=== PATIENT | male | born 1950 | race Caucasian/White ===

== ENCOUNTER 2019-01-29 09:25 | Emergency (ER) | payer MEDICARE, SELFPAY ==
[2019-01-29 09:25] VITALS: BP 144/80; PULSE 77; RESP 13; TEMP 36.1; O2SAT 100
--- NOTE | 2019-01-29 09:35 | ED.NEUROSD ---
HPI - Neuro Symptoms/Deficit General Chief Complaint: Neuro Symptoms/Deficit Stated Complaint: STROKE SYMPTOMS Time Seen by Provider: 01/29/19 09:34 Source: patient Mode of arrival: ambulatory Limitations: no limitations History of Present Illness HPI Narrative: Patient is an 68 year old male who presents with a speech difficulty now resolved. states that he was sitting in a chair she noticed some facial drooping he was only talking out of 1 side of his mouth she did not understand what he was saying. He then stood up his at which point he fell against the wall no loss of consciousness. He said that his legs got extremely weak and numb bilaterally. He denies any chest pain or heart palpitations. No unilateral weakness. symptoms lasted for under 10 minutes. He now is back to normal. Onset (ago): minute(s) Timing confirmed by: spouse Location: speech History of same: No Related Data Home Medications Medication Instructions Recorded Confirmed Artificial Tears (PF) 1 - 2 drp EYE-RIGHT TID PRN 01/29/19 01/29/19 PNV cmb#[id number]-ferrous fumarate-FA 1 tab PO 1200 01/29/19 01/29/19 [] acetaminophen 650 mg PO Q4H PRN 01/29/19 01/29/19 atorvastatin 20 mg PO BEDTIME 01/29/19 01/29/19 bisacodyl 10 mg PO DAILY PRN 01/29/19 01/29/19 calcium carbonate 2,000 mg PO BID 01/29/19 01/29/19 cholecalciferol (vitamin D3) 800 unit PO 1200 01/29/19 01/29/19 [Vitamin D3] furosemide 80 mg PO BID 01/29/19 01/29/19 insulin glargine 6 units SUBCUT QAM 01/29/19 01/29/19 magnesium oxide 840 mg PO TID 01/29/19 01/29/19 melatonin 6 mg PO BEDTIME 01/29/19 01/29/19 metoprolol succinate 50 mg PO DAILY 01/29/19 01/29/19 mycophenolate mofetil 500 mg PO BID 01/29/19 01/29/19 pantoprazole 40 mg PO DAILY 01/29/19 01/29/19 pentamidine 1 dose INHALATION QMONTH 01/29/19 01/29/19 prednisone 10 mg PO DAILY 01/29/19 01/29/19 tacrolimus 1 mg PO Q12H 01/29/19 01/29/19 valganciclovir 450 mg PO DAILY 01/29/19 01/29/19 Allergies Allergy/AdvReac Type Severity Reaction Status Date / Time No Known Drug Allergies Allergy Verified 01/29/19 10:46 Review of Systems Review of Systems ROS Unobtainable: All systems reviewed & are unremarkable except as noted in HPI and below Constitutional Denies chills, Denies fever(s), Denies lethargy and Denies weakness Cardiovascular Denies chest pain, Denies irregular heart rhythm, Reports lightheadedness, Denies palpitations, Denies dyspnea, Denies dyspnea on exertion and Denies orthopnea Respiratory Denies cough, Denies dyspnea, Denies dyspnea on exertion and Denies wheezing Gastrointestinal Gastrointestinal: Denies abdominal pain, Denies change in bowel habits, Denies diarrhea, Denies nausea and Denies vomiting Genitourinary Denies hematuria, Denies flank pain, Denies urinary incontinence and Denies urinary urgency Musculoskeletal Denies back pain, Denies muscle weakness, Denies numbness and Reports tingling Integumentary/Breasts Denies pruritus, Denies erythema, Denies rash and Denies wounds Neurologic Reports as per HPI, Denies numbness, Denies seizure-like activity, Reports tingling and Denies weakness Endocrine Denies palpitations Allergic/Immunologic Denies wheezing [facility] Medical History (Updated 01/29/19 @ 12:55 by Sayda Orosco DO) Atrial fibrillation (Acute) Pulmonary fibrosis (Acute) Surgical History Lung transplant status, bilateral (Acute) Exam Initial Vital Signs Initial Vital Signs: Vital Signs Temperature 97 F L 01/29/19 09:25 Pulse Rate 77 01/29/19 09:25 Respiratory Rate 13 01/29/19 09:25 Blood Pressure 144/80 H 01/29/19 09:25 Pulse Oximetry 100 01/29/19 09:25 GENERAL: Alert well-appearing male no acute distress HEENT: Head atraumatic,EOMI, pupils reactive, face symmetric, no JVD CARDIOVASCULAR: Regular rate and rhythm without murmurs, rubs or gallops. RESPIRATORY: Breath sounds equal bilaterally, no wheezes rales or rhonchi. ABDOMEN: Soft, nontender. Normoactive bowel sounds all 4 quadrants. No guarding or rebound. EXTREMITIES: Normal range of motion, no clubbing or edema. Neurovascularly intact NEUROLOGICAL: Alert and oriented x4.Normal gait and speech. Cranial nerves II through XII grossly intact. [Good [id number], good [id number], strength equal bilaterally, no dysarthria or aphasia, sensation in tact to soft touch bilaterally, no visual changes, no facial droop] SKIN: Warm, dry, no laceration, no petechiae, no rashes or lesions. Scores ABCD2 Age >= 60 years: yes Initial BP. Either SBP >= 140 or DBP >= 90.: no Clinical features of the TIA: speech disturbance without weakness Duration of symptoms: < 10 minutes History of diabetes: yes ABCD2 Score: 3 NIH Stroke Scale Level of Conciousness: Alert, keenly responsive Ask month/age: Answers both questions correctly. Open/close eyes, close hand: Performs both tasks correctly Best gaze horizontal: Normal Visual fountain: No visual loss Facial palsy: Normal symetrical movement Left arm drift: No drift for full 10 sec Right arm drift: No drift for full 10 sec Left leg drift: No drift for full 10 sec Right leg drift: No drift for full 10 sec Limb ataxia: Absent Sensory on face/arms/legs: Normal, no sensory loss Best language: No aphasia, normal Dysarthria: Normal Extinction or inattention: No abnormality Total NIH Stroke scale score: 0 Course Orders Ordered: ED Orders 01/29/19 09:34 Urine Drug Screen, Rapid Stat EKG-12 Lead Stat 01/29/19 09:44 CT head/brain wo con Stat 01/29/19 10:00 Complete Blood Count AUTO DIFF Stat Comprehensive Metabolic Panel Stat Partial Thromboplastin Time Stat Prothrombin Time INR Stat Troponin & CK Cardiac Panel Stat 01/29/19 11:53 CT angio chest abdomen pelvis Stat Discontinued Medications Aspirin (Aspirin Chew) 324 mg PO NOW ONE Stop: 01/29/19 11:33 Last Admin: 01/29/19 12:35 Dose: 324 mg Vital Signs - 8 hr 01/29/19 09:25 01/29/19 11:00 01/29/19 11:12 Temperature 97 F L Pulse Rate 77 69 70 Respiratory Rate 13 15 Blood Pressure 144/80 H Blood Pressure [Left Arm] 120/71 120/71 Pulse Oximetry 100 97 97 01/29/19 13:05 Temperature Pulse Rate 73 Respiratory Rate 18 Blood Pressure Blood Pressure [Left Arm] 96/48 L Pulse Oximetry 97 MDM - Neuro Symptoms/Deficit Lab Data Attestation: I reviewed the patient's lab results. Result diagrams: 01/29/19 10:00 01/29/19 10:00 Lab Results 01/29/19 01/29/19 01/29/19 Range/Units 10:00 10:00 10:00 WBC 6.9 (4.5-11.0) X10^3/uL RBC 3.24 L (4.5-5.9) X10^6/uL Hgb 10.2 L (13.5-17.5) g/dL Hct 31.4 L (41-53) % MCV 97.1 (80-100) fL MCH 31.4 (26-34) PG MCHC 32.3 (30-36) % RDW 17.6 H (11.6-14.8) % Plt Count 192 (150-400) X10^3/uL Neut % (Auto) Not Reportable Lymph % (Auto) Not Reportable [place] % (Auto) Not Reportable Eos % (Auto) Not Reportable Baso % (Auto) Not Reportable Lymph # (Auto) Not Reportable [place] # (Auto) Not Reportable Baso # (Auto) Not Reportable Total Counted 100 Seg Neutrophils % 75.0 H (38-70) % Band Neutrophils % 11.0 H (3-7) % Lymphocytes % (Manual) 7.0 L (25-45) % Atypical Lymphs % 3.0 H ( - 0) % Monocytes % (Manual) 1.0 L (2-11) % Eosinophils % (Manual) 1.0 L (2-4) % Metamyelocytes % 2.0 H (-0) % Neutrophils # (Manual) 5934 H (8833-0737) /uL RBC Morphology Normal morphology PT 12.3 (10.1-12.7) SECONDS INR 1.1 (0.9-1.3) APTT 27 (26.4-36.2) SECONDS Sodium 139 (137-145) mmol/L Potassium 4.0 (3.4-5.1) mmol/L Chloride 96 L (98-107) mmol/L Carbon Dioxide 32 (22-32) mmol/L BUN 47 H (9-20) mg/dL Creatinine 1.40 H (0.66-1.25) mg/dL Estimated GFR 50.2 L (>60) mL/min BUN/Creatinine Ratio 33.6 H (6-22) Glucose 137 H (80-110) mg/dL Calcium 8.9 (8.4-10.2) mg/dL Total Bilirubin 0.4 (0.2-1.3) mg/dL AST 27 (17-59) IU/L ALT 40 (21-72) IU/L Alkaline Phosphatase 63 (38-126) U/L Total Creatine Kinase 25 L (55-170) U/L CK-MB (CK-2) TNP CK-MB (CK-2) Rel Index TNP Troponin I < 0.012 (0.01-0.034) ng/mL Total Protein 6.1 L (6.3-8.2) g/dL Albumin 3.6 (3.5-5.0) g/dL Globulin 2.5 (1.7-4.1) g/dL Albumin/Globulin Ratio 1.4 (1.0-2.8) Point of Care Testing Glucose POC 153 Urine Dip Bedside Urine Glucose Negative Bedside Urine Bilirubin - Negative Bedside Urine Ketone - Negative Urine Specific [place] 1.015 Bedside Urine Occult Blood - Negative Bedside Urine pH 7.0 Bedside Urine Protein - Negative Bedside Urine Urobilinogen - Negative Bedside Urine Nitrite - Negative Bedside Urine Leukocytes - Negative Esterase Imaging Data CT scan - head: Radiologist's impression: PROCEDURE: CT HEAD/BRAIN WO CON INDICATIONS: speech difficulty now resolved TECHNIQUE: Noncontrast 4.5 mm thick angled axial sections acquired from the foramen magnum to the vertex, with coronal and sagittal reformats. For radiation dose reduction, the following was used: automated exposure control, adjustment of mA and/or kV according to patient size. COMPARISON: None. FINDINGS: Image quality: Diagnostic. CSF spaces: Basal cisterns are patent. No extra-axial fluid collections. Ventricles are normal in size and shape. An arachnoid cyst within the posterior fossa is incidentally noted. Brain: No midline shift. No intracranial masses or hemorrhage. Harrison-white matter interface is normal. Skull and face: Calvarium and visualized facial bones are intact, without suspicious lesions. Sinuses: Visualized sinuses and mastoids are clear. IMPRESSION: Unremarkable head CT. No acute intracranial hemorrhage. Dictated by: Sameer Pleitez M.D. on 01/29/2019 at 8:59 CT scan - chest: Radiologist's impression: PROCEDURE: CT ANGIO CHEST ABDOMEN PELVIS INDICATIONS: known ascending aneurysm, chest pain TECHNIQUE: Precontrast 5 mm thick sections acquired from the lung apices to the iliac crests. After the administration of intravenous contrast, 2.5 mm thick sections again acquired from the lung apices to the iliac crests. Maximum intensity projection (MIP) oblique sagittal and coronal reformats were then acquired. For radiation dose reduction, the following was used: automated exposure control. COMPARISON: None. FINDINGS: Image quality: Excellent. AORTA: Intramural hematoma: Absent Maximum hematoma thickness: Not applicable. Focal contrast enhancement: Intramural blood pool (< 2 mm neck or imperceptible communication with aortic lumen): Absent. Ulcer-like projection (broad communication with aortic lumen > 3 mm): Absent. Dissection: Absent [place] classification: Not applicable Maximum aortic diameter: 4.3 cm at the ascending aorta. Periaortic hematoma: Absent. CHEST: Lungs and pleura: No acute airspace opacities. No pleural effusions or pneumothorax. Central and peripheral airways are patent and normal in caliber. Mediastinum: Heart size is normal. No pericardial effusion. No mediastinal or hilar adenopathy by size criteria. Central pulmonary arteries are normal in size. Esophagus is normal in caliber. No hiatal hernias. Bones and chest wall: No axillary adenopathy by size criteria. Thyroid gland is normal. No suspicious bony lesions. No vertebral body compression fractures. ABDOMEN: Vasculature: Celiac trunk and mesenteric arteries are patent. Renal arteries are also patent. Solid organs: Liver is normal in size and enhancement. There are several scattered small water density hepatic cysts. Gallbladder normal. Biliary system is non dilated. Pancreas enhances normally. Spleen is normal in size and enhancement. No adrenal nodules. Both kidneys are normal in size and enhancement, without hydronephrosis. Peritoneum and bowel: No free fluid or air. Bowel loops are normal in caliber and wall thickness. Nodes and vessels: No retroperitoneal or mesenteric adenopathy by size criteria. Inferior vena cava is normal in morphology. Miscellaneous: No ventral hernias. PELVIS: Genitourinary: Bladder wall thickness is normal. Miscellaneous: No inguinal hernias or adenopathy. No ventral hernias. Prostate radiation therapy seed implants. Bones: No suspicious bony lesions. No vertebral body compression fractures. IMPRESSION: No dissection found, 4.3 cm maximally dilated ascending aorta, no comparison to establish chronicity of this measurement. No definite source of chest pain is found. Dictated by: Santana Ruffin M.D. on 01/29/2019 at 12:32 ECG Data Attestation: I personally reviewed and interpreted this ECG as follows: Prior ECG tracings: not available for review Interpretation: Normal sinus rhythm rate 73 HI interval 148 QRS [address] changes Q-wave noted in lead 3 no priors to MDM Narrative Medical decision making narrative: I spoke at length the patient's own PCP Dr. Delvalle at the [facility]. He is quite familiar with the patient. He has been updated on patient's test results. He states patient had a very complete workup prior to his lung transplant. At this time he is requesting imaging of his ascending aneurysm. He is aware that patient actually does not any chest pain at all although he did have a slight near syncopal episode. At this time patient is agreeable to a CT angio. Dr. Delvalle then updated on the patient's angio results which seems stable. He agrees with outpatient follow-up with carotid Dopplers and starting patient on an aspirin. Patient and updated on patient's test results agree with daily full-dose aspirin and follow-up. Discharge Plan Departure Patient Disposition: Home Clinical Impression: Transient cerebral ischemia Qualifiers: Transient cerebral ischemia type: unspecified Qualified Code(s): G45.9 - Transient cerebral ischemic attack, unspecified Discharge Date/Time: 01/29/19 13:20 Interventions: ED Discharge Assessment Last Done: 01/29/19 13:19 Instructions: DI for Transient Ischemic Attack Activity Restrictions/Additional Instructions: *You have been diagnosed with TIA *What to do: Still recommend having carotid Dopplers of your neck performed by her PCP. *Continue to take medications as directed Aspirin 325mg daily *Follow up with your primary care provider in 2-3 days *Return to ER if you should have chest pain shortness of breath weakness has difficulty speaking facial droop visual changes or any new, worsening or concerning symptoms Prescriptions: No Action atorvastatin 20 mg Tablet 20 mg PO BEDTIME RF: 0 metoprolol succinate 100 mg Tablet Extended Release 24 Hr 50 mg PO DAILY RF: 0 prednisone 5 mg Tablet 10 mg PO DAILY RF: 0 mycophenolate mofetil 500 mg Tablet 500 mg PO BID RF: 0 furosemide 20 mg Tablet 80 mg PO BID RF: 0 tacrolimus 1 mg Capsule 1 mg PO Q12H RF: 0 Artificial Tears (PF) 1 - 2 drp EYE-RIGHT TID PRN (Reason: Dry Eyes) RF: 0 valganciclovir 450 mg Tablet 450 mg PO DAILY RF: 0 acetaminophen 325 mg Tablet 650 mg PO Q4H PRN (Reason: PAIN) RF: 0 magnesium oxide 420 mg Tablet 840 mg PO TID RF: 0 insulin glargine 100 unit/mL Solution 6 units subcut QAM RF: 0 pentamidine 300 mg Recon Soln 1 dose Inhalation QMONTH RF: 0 melatonin 3 mg Tablet 6 mg PO BEDTIME RF: 0 pantoprazole 40 mg Tablet,Delayed Release (Dr/Ec) 40 mg PO DAILY RF: 0 calcium carbonate 500 mg calcium (1,250 mg) Tablet,Chewable 2,000 mg PO BID RF: 0 cholecalciferol (vitamin D3) [Vitamin D3] 400 unit Tablet 800 unit PO 1200 RF: 0 bisacodyl 5 mg Tablet 10 mg PO DAILY PRN (Reason: Constipation) RF: 0 PNV cmb#95-ferrous fumarate-FA [] 28 mg iron- 800 mcg Tablet 1 tab PO 1200 RF: 0 Referrals: Carleen Harris ARNP [Primary Care Provider] -
--- NOTE | 2019-01-29 09:44 | DI.CT.S_ITS ---
PROCEDURE: CT HEAD/BRAIN WO CON INDICATIONS: speech difficulty now resolved TECHNIQUE: Noncontrast 4.5 mm thick angled axial sections acquired from the foramen magnum to the vertex, with coronal and sagittal reformats. For radiation dose reduction, the following was used: automated exposure control, adjustment of mA and/or kV according to patient size. COMPARISON: None. FINDINGS: Image quality: Diagnostic. CSF spaces: Basal cisterns are patent. No extra-axial fluid collections. Ventricles are normal in size and shape. An arachnoid cyst within the posterior fossa is incidentally noted. Brain: No midline shift. No intracranial masses or hemorrhage. Harrison-white matter interface is normal. Skull and face: Calvarium and visualized facial bones are intact, without suspicious lesions. Sinuses: Visualized sinuses and mastoids are clear. IMPRESSION: Unremarkable head CT. No acute intracranial hemorrhage. Dictated by: Sameer Pleitez M.D. on 01/29/2019 at 8:59 Approved by: Sameer Pleitez M.D. on 01/29/2019 at 9:30
--- NOTE | 2019-01-29 09:47 | PC.NURSE ---
dr. francisco did not want to call code stroke on pt
--- NOTE | 2019-01-29 10:12 | PC.NURSE ---
Hx of one episode of atrial flutter in August after his bilateral lung transplant in July. He was cardioverted and anticoagulation. He stopped his anticoagulation therapy in December. Denies symptoms prior to this episode of slurred speech and facial droop. BEFAST is negative at this time.
[2019-01-29 10:18] LABS: Add Manual Diff / Slide Review YES; Hematocrit 31.4 % (41-53); Hemoglobin 10.2 g/dL (13.5-17.5); Mean Corpuscular HGB Conc 32.3 % (30-36); Mean Corpuscular Hemoglobin 31.4 PG (26-34); Mean Corpuscular Volume 97.1 fL (80-100); Platelet Count 192 X10^3/uL (150-400); Red Blood Cell Count 3.24 X10^6/uL (4.5-5.9); Red Cell Distribution Width 17.6 % (11.6-14.8); White Blood Cell Count 6.9 X10^3/uL (4.5-11.0)
[2019-01-29 10:24] LABS: INR 1.1 (0.9-1.3); Prothrombin Time 12.3 SECONDS (10.1-12.7)
[2019-01-29 10:26] LABS: PTT Partial Thromboplastin Tim 27 SECONDS (26.4-36.2)
[2019-01-29 10:28] LABS: Alanine Aminotransferase 40 IU/L (21-72); Albumin 3.6 g/dL (3.5-5.0); Albumin Globulin Ratio 1.4 (1.0-2.8); Alkaline Phosphatase 63 U/L (38-126); Aspartate Aminotransferase 27 IU/L (17-59); BUN Creatinine Ratio 33.6 (6-22); Bilirubin Total 0.4 mg/dL (0.2-1.3); Blood Urea Nitrogen 47 mg/dL (9-20); Calcium 8.9 mg/dL (8.4-10.2); Carbon Dioxide 32 mmol/L (22-32); Chloride 96 mmol/L (98-107); Creatine Kinase 25 U/L (55-170); Estimated Glomerular Filt Rate 50.2 mL/min (>60); Globulin 2.5 g/dL (1.7-4.1); Glucose 137 mg/dL (80-110); HEMOLYSIS < 15 (0-50); Sodium 139 mmol/L (137-145); Total Protein 6.1 g/dL (6.3-8.2)
[2019-01-29 10:40] LABS: Troponin I < 0.012 ng/mL (0.01-0.034)
[2019-01-29 11:00] VITALS: BP 120/71; PULSE 69; RESP 15; O2SAT 97
[2019-01-29 11:12] VITALS: BP 120/71; PULSE 70; O2SAT 97
[2019-01-29 11:27] LABS: Neutrophils Absolute Manual 5934 /uL (3000-5900); Total Cells Counted 100
[2019-01-29 11:28] LABS: RBC Morphology Normal Morphology
--- NOTE | 2019-01-29 11:53 | DI.CT.S_ITS ---
PROCEDURE: CT ANGIO CHEST ABDOMEN PELVIS INDICATIONS: known ascending aneurysm, chest pain TECHNIQUE: Precontrast 5 mm thick sections acquired from the lung apices to the iliac crests. After the administration of intravenous contrast, 2.5 mm thick sections again acquired from the lung apices to the iliac crests. Maximum intensity projection (MIP) oblique sagittal and coronal reformats were then acquired. For radiation dose reduction, the following was used: automated exposure control. COMPARISON: None. FINDINGS: Image quality: Excellent. AORTA: Intramural hematoma: Absent Maximum hematoma thickness: Not applicable. Focal contrast enhancement: Intramural blood pool (< 2 mm neck or imperceptible communication with aortic lumen): Absent. Ulcer-like projection (broad communication with aortic lumen > 3 mm): Absent. Dissection: Absent [place] classification: Not applicable Maximum aortic diameter: 4.3 cm at the ascending aorta. Periaortic hematoma: Absent. CHEST: Lungs and pleura: No acute airspace opacities. No pleural effusions or pneumothorax. Central and peripheral airways are patent and normal in caliber. Mediastinum: Heart size is normal. No pericardial effusion. No mediastinal or hilar adenopathy by size criteria. Central pulmonary arteries are normal in size. Esophagus is normal in caliber. No hiatal hernias. Bones and chest wall: No axillary adenopathy by size criteria. Thyroid gland is normal. No suspicious bony lesions. No vertebral body compression fractures. ABDOMEN: Vasculature: Celiac trunk and mesenteric arteries are patent. Renal arteries are also patent. Solid organs: Liver is normal in size and enhancement. There are several scattered small water density hepatic cysts. Gallbladder normal. Biliary system is non dilated. Pancreas enhances normally. Spleen is normal in size and enhancement. No adrenal nodules. Both kidneys are normal in size and enhancement, without hydronephrosis. Peritoneum and bowel: No free fluid or air. Bowel loops are normal in caliber and wall thickness. Nodes and vessels: No retroperitoneal or mesenteric adenopathy by size criteria. Inferior vena cava is normal in morphology. Miscellaneous: No ventral hernias. PELVIS: Genitourinary: Bladder wall thickness is normal. Miscellaneous: No inguinal hernias or adenopathy. No ventral hernias. Prostate radiation therapy seed implants. Bones: No suspicious bony lesions. No vertebral body compression fractures. IMPRESSION: No dissection found, 4.3 cm maximally dilated ascending aorta, no comparison to establish chronicity of this measurement. No definite source of chest pain is found. Dictated by: Santana Ruffin M.D. on 01/29/2019 at 12:32 Approved by: Santana Ruffin M.D. on 01/29/2019 at 12:35
[2019-01-29] MEDS: ASPIRIN 81 MG TAB 324 MG PO (12:35)
[2019-01-29 13:05] VITALS: BP 96/48; PULSE 73; RESP 18; O2SAT 97
== END 2019-01-29 13:20 | disposition home or self-care (01) ==
PROVIDERS: Emergency Provider Emergency Medicine; PCP Nurse Practitioner
DX: G45.9 Transient cerebral ischemic attack, unspecified (principal); R53.1 Weakness; R20.0 Anesthesia of skin; R47.89 Other speech disturbances; R55 Syncope and collapse; Z94.2 Lung transplant status
CPT/HCPCS: 36415; 36591; 70450; 71275; 74174; 80053; 81003; 82550; 82962; 84484; 85025; 85610; 85730; 93005; 99284; 99285; 99291; Q9967

== ENCOUNTER 2019-11-26 08:15 | Outpatient (RCR) | payer OTHER, SELFPAY ==
--- NOTE | 2019-09-26 19:45 | PT.OIE ---
Current Diagnoses Low back pain (09/26/19) Abnormal posture (09/26/19) Weakness (09/26/19) Past Medical History (Last Updated 01/29/19 @ 11:45 by Sayda Orosco DO) Atrial fibrillation (Acute) Pulmonary fibrosis (Acute) Past Surgical History (Last Reviewed 01/29/19 @ 09:40 by Sayda Orosco DO) Lung transplant status, bilateral (Acute) Visit Care Team Role Provider Type JEB Armenta Attending Provider Non-Staff Primary Care Provider Specialty: Medical Address: [address] [place] [address], [id number] Email: Physical Therapy Initial Evaluation PT-OP-A Visit Information Start: 09/26/19 08:13 Freq: Status: Active Protocol: Document 09/26/19 15:13 [facility] (Rec: 09/26/19 16:00 [facility] [id number]) Out-Patient Physical Therapy Visit Information Visit Information Visit Type Initial Evaluation Visit Start Time 15:18 Visit Stop Time 16:00 Total Visit Minutes 42 Visit Number 1 Number of INJECTION MOLDING MACHINE SETTER Visits 0 PT-OP-B Current Condition Start: 09/26/19 08:13 Freq: Status: Active Protocol: Document 09/26/19 15:13 [facility] (Rec: 09/26/19 16:00 [facility] [id number]) Current Condition History of Current Condition Onset Date 1 month ago Current Complaints LBP History of Current Condition Pt reports about 1 month ago he was crouched into a small space for about 10 min and he had excruciating pain after. Pt reports he feels likes he gets about 2-3% better per day and is about 40% better now compared to 1 month ago. Pt reports he took tylenol 4 times aday at first but now is only taking it once. Pt reprots it is difficult getting socks and pants on. Pt reprots history of B lung transplant last Jul 2018. He reports history of prostate cancer where he had a seed implant and is now cleared. 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 Pt has history of LBP in past from injury 20 years ago. Pt repots he now puts a pillow between his knees to help with sleeping. Pt walks dog 1-2 miles/day. Pt reports after the lung surgery he has had numbness in ant L leg and B ankles. Pt reports overall has recovered from lung surgery but is still a little weaker. Lung transplant was d/t pulmonary fibrosis. Pt reports always a little bit of pain in chest since surgery. Prior Treatments and Tests Xray of his back showed history of T11 compression fracture; acupuncture 2x- helpful Treatment Goals Patient/Caregiver Goals eliminate the pain, be more flexible, easier time at work, get dressed easier PT-OP-C Subjective Start: 09/26/19 08:13 Freq: Status: Active Protocol: Document 09/26/19 15:13 [facility] (Rec: 09/26/19 16:00 [facility] [id number]) Patient Questionnaires Oswestry Low Back Index Oswestry Score 19/50 Oswestry Impairment 20 to 39% Impaired (Score 20- 39) OP-PT Pain Assessment Location LBP Intensity 3 Scale Used Numeric (1 - 10) Description Aching,With Movement Description- Other worst: 5/10; initially felt like someone hit in spine w/ hammer Frequency Daily Pain Duration constant 3/10 w/only momentary inc to 5 Pain Aggravating Factors ADL's,Standing,Sitting,Bending ,Lifting Other Pain Aggravating Factors working Pain Alleviating Factors Heat,Medication Other Pain Alleviating Factors stretching, walk PT-OP-F Manual Assessment Start: 09/26/19 08:13 Freq: Status: Active Protocol: Document 09/26/19 15:13 [facility] (Rec: 09/26/19 16:00 [facility] [id number]) Manual Assessments Soft Tissue Assessment Soft Tissue Mobility Assessment tight QL B PT-OP-J Posture/Palpation/Skin Start: 09/26/19 08:13 Freq: Status: Active Protocol: Document 09/26/19 15:13 [facility] (Rec: 09/26/19 16:00 [facility] [id number]) Posture Evaluation Paulo Postural Classification System Paulo Postural Classifications Posterior/Anterior Elbow Flexion Test 1 Lumbar Protective Mechanism Left AP 1 Lumbar Protective Mechanism Right AP 1 Lumbar Protective Mechanism Left PA 1 Lumbar Protective Mechanism Right PA 2 PT-OP-K Range of Motion Start: 09/26/19 08:13 Freq: Status: Active Protocol: Document 09/26/19 15:13 [facility] (Rec: 09/26/19 16:00 [facility] [id number]) Lumbar Spine Range of Motion Lumbar Spine Active Degrees Rotation Left 53 Rotation Right 47 ROM Limitations Pain Comments SB R:9 cm SB L: 11 cm flex: 5cm pain ext:4.5 cm PT-OP-L Special Tests Start: 09/26/19 08:13 Freq: Status: Active Protocol: Document 09/26/19 15:13 [facility] (Rec: 09/26/19 16:00 [facility] [id number]) Special Tests Lumbar Spine Special Tests Slump Test Results positive B Compression Test Results relief CADY Test Results Neg R; mild L hip pain Rocky Test Results modified rocky (hip flexor only tested)-mild tightness B Straight Leg Raise Test Results R 68-HS tightness; L 82 HS tightenss and ant L thigh pain PT-OP-M Strength Start: 09/26/19 08:13 Freq: Status: Active Protocol: Document 09/26/19 15:13 [facility] (Rec: 09/26/19 16:00 [facility] [id number]) Hip Strength Hip Manual Muscle Testing Left Flexion (L2) 3 Fair Abduction 3 Fair Adduction 3+ Fair+ External Rotation 3 Fair Internal Rotation 3 Fair Right Flexion (L2) 3+ Fair+ Abduction 3+ Fair+ Adduction 3 Fair External Rotation 3+ Fair+ Internal Rotation 3+ Fair+ Comments significant dec core stability with hip motions Knee Strength Knee Manual Muscle Testing Left Flexion (S2) 4- Good- Extension (L3) 3+ Fair+ Right Flexion (S2) 4+ Good+ Extension (L3) 3+ Fair+ Ankle/Foot Strength Ankle and Foot Manual Muscle Testing Left Dorsiflexion (L4) 3+ Fair+ Plantarflexion (S1) 3+ Fair+ Right Dorsiflexion (L4) 3 Fair Plantarflexion (S1) 3 Fair Comments PF tested seated B PT-OP-Q Treatments Start: 09/26/19 08:13 Freq: Status: Active Protocol: Document 09/26/19 15:13 [facility] (Rec: 09/26/19 16:00 [facility] [id number]) Therapeutic Exercises Supine Exercises bridge Reps/Minutes 8 rotation Supine Exercise Name LTR Side bilateral Reps/Minutes 6 hip flex Supine Exercise Name Tabd contraction w/marching Side bilateral Reps/Minutes 15 PT-OP-T Assessment and Plan Start: 09/26/19 08:13 Freq: Status: Active Protocol: Document 09/26/19 15:13 [facility] (Rec: 09/26/19 16:00 [facility] [id number]) Physical Therapy Assessment Rehab Potential Rehabilitation Potential Good Evaluation Complexity Number of Personal Factors/Comorbidities 3 or More Number of Body Systems Impaired 4 or More Clinical Presentation at Evaluation Evolving Impairments Impairments Activity Tolerance,Balance, Functional Activities, Functional Mobility,Gait,Pain, Posture,ROM,Soft Tissue Mobility,Strength Goals strength Short Term Goal (STG) Pt will be indep with HEP STG Duration 10/27/19 Linking Machine Operator Goal (LTG) Pt will score 4+/5 on LE strength & 3/5 LPM, EFT & VCT in order to show improved stability without pain in order to allow him to do all his typical activities without inc pain. LTG Duration 11/27/19 ROM Short Term Goal (STG) Pt will have full ROM of lumbar spine without pain. STG Duration Snf Goal (LTG) Pt will be able to his full job in order to paricipate in all work duties without inc pain. LTG Duration 11/27/19 Oswestry Impairment 19/50 Short Term Goal (STG) Pt improve his score to 13/50 to show improvement in functional mobility STG Duration 10/27/19 Linking Machine Operator Goal (LTG) Pt improve his score to 3/50 to show improvement in functional mobility LTG Duration 11/27/19 Assessment Summary Assessment Pt presents with 1 month ago onset of LBP that started after he was in a tight space at work. Pain was significant then and pt reports pain is now about 40% better. Reports despite hisory of fracture from injury 20 years ago, he did not have daily LBP until this recent incident. He has overall dec core & LE strength that likely is partly d/t deconditioning at lung transplant 14 months ago that he has not fully recovered from which may have put him at more risk for injury. He has a very active job that requires him to bend, lift and twist and would benefit from PT to address these strength, ROM, gait, and posture deficits along with decreasing pain. Physical Therapy Plan Frequency and Duration Frequency of Treatment 2x/Week Duration of Treatment 2 months Plan of Care Start Date 09/26/19 Plan of Care End Date 11/27/19 Therapeutic Interventions Modalities Cold Pack/Ice Massage,Electric Stimulation,Hot Packs Next Visit Focus/Plan Next Note Type Treatment Note Next Visit Plan supine core stability, STM to QL & ES, hip stability (hip abd strength, clamshells, reverse clams)
--- NOTE | 2019-10-01 12:11 | PT.OTN ---
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 Pt reports he feels likes he gets about 2-3% better per day and is about 40% better now compared to 1 month ago. Pt reports he took tylenol 4 times aday at first but now is only taking it once. Pt reprots it is difficult getting socks and pants on. Pt reprots history of B lung transplant last Jul 2018. He reports history of prostate cancer where he had a seed implant and is now cleared. 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 Pt has history of LBP in past from injury 20 years ago. Pt repots he now puts a pillow between his knees to help with sleeping. Pt walks dog 1-2 miles/day. Pt reports after the lung surgery he has had numbness in ant L leg and B ankles. Pt reports overall has recovered from lung surgery but is still a little weaker. Lung transplant was d/t pulmonary fibrosis. Pt reports always a little bit of pain in chest since surgery. Prior Treatments and Tests Xray of his back showed history of T11 compression fracture; acupuncture 2x- helpful Treatment Goals Patient/Caregiver Goals eliminate the pain, be more flexible, easier time at work, get dressed easier PT-OP-C Subjective Start: 09/26/19 08:13 Freq: Status: Active Protocol: Document 10/01/19 11:23 [facility] (Rec: 10/01/19 12:11 [facility] [id number]) OP-PT Subjective Patient Comments Patient Comments Pt reports he couldn't remember if he was supposed to do the marches fast or slow so did both ways. PT-OP-F Manual Assessment Start: 09/26/19 08:13 Freq: Status: Active Protocol: Document 09/26/19 15:13 [facility] (Rec: 09/26/19 16:00 [facility] [id number]) Manual Assessments Soft Tissue Assessment Soft Tissue Mobility Assessment tight QL B PT-OP-J Posture/Palpation/Skin Start: 09/26/19 08:13 Freq: Status: Active Protocol: Document 09/26/19 15:13 [facility] (Rec: 09/26/19 16:00 [facility] [id number]) Posture Evaluation Paulo Postural Classification System Paulo Postural Classifications Posterior/Anterior Elbow Flexion Test 1 Lumbar Protective Mechanism Left AP 1 Lumbar Protective Mechanism Right AP 1 Lumbar Protective Mechanism Left PA 1 Lumbar Protective Mechanism Right PA 2 PT-OP-K Range of Motion Start: 09/26/19 08:13 Freq: Status: Active Protocol: Document 09/26/19 15:13 [facility] (Rec: 09/26/19 16:00 [facility] [id number]) Lumbar Spine Range of Motion Lumbar Spine Active Degrees Rotation Left 53 Rotation Right 47 ROM Limitations Pain Comments SB R:9 cm SB L: 11 cm flex: 5cm pain ext:4.5 cm PT-OP-L Special Tests Start: 09/26/19 08:13 Freq: Status: Active Protocol: Document 09/26/19 15:13 [facility] (Rec: 09/26/19 16:00 [facility] [id number]) Special Tests Lumbar Spine Special Tests Slump Test Results positive B Compression Test Results relief CADY Test Results Neg R; mild L hip pain Rocky Test Results modified rocky (hip flexor only tested)-mild tightness B Straight Leg Raise Test Results R 68-HS tightness; L 82 HS tightenss and ant L thigh pain PT-OP-M Strength Start: 09/26/19 08:13 Freq: Status: Active Protocol: Document 09/26/19 15:13 [facility] (Rec: 09/26/19 16:00 [facility] [id number]) Hip Strength Hip Manual Muscle Testing Left Flexion (L2) 3 Fair Abduction 3 Fair Adduction 3+ Fair+ External Rotation 3 Fair Internal Rotation 3 Fair Right Flexion (L2) 3+ Fair+ Abduction 3+ Fair+ Adduction 3 Fair External Rotation 3+ Fair+ Internal Rotation 3+ Fair+ Comments significant dec core stability with hip motions Knee Strength Knee Manual Muscle Testing Left Flexion (S2) 4- Good- Extension (L3) 3+ Fair+ Right Flexion (S2) 4+ Good+ Extension (L3) 3+ Fair+ Ankle/Foot Strength Ankle and Foot Manual Muscle Testing Left Dorsiflexion (L4) 3+ Fair+ Plantarflexion (S1) 3+ Fair+ Right Dorsiflexion (L4) 3 Fair Plantarflexion (S1) 3 Fair Comments PF tested seated B PT-OP-Q Treatments Start: 09/26/19 08:13 Freq: Status: Active Protocol: Document 10/01/19 11:23 [facility] (Rec: 10/01/19 12:11 [facility] [id number]) Therapeutic Exercises Supine Exercises bridge Reps/Minutes 10 Comments w/arms in air rotation Supine Exercise Name LTR Side bilateral Reps/Minutes 10 Comments segmental rotation hip flex Supine Exercise Name Tabd contraction w/marching Side bilateral Reps/Minutes 10 Sidelying Exercises abd Sidelying Exercise Name hip Side bilateral Reps/Minutes 10 IR Sidelying Exercise Name reverse clam Side bilateral Reps/Minutes 10 ER Sidelying Exercise Name clamshell Side bilateral Reps/Minutes 10 Manual Therapy Treatment Soft Tissue Mobilization QL & ES Body Location B Mobilization Type Rolling,Strumming,Sustained Pressure Intensity/Depth Moderate Body Position Sidelying Neuro Re-Education Treatment Other Activities PNF Details ant elevation/post depression R Comments 1. rhythmic initiation 2. Comb of isotonics 3. mass flex & ext combo of isotonics PT-OP-R Modalities Start: 09/26/19 08:13 Freq: Status: Active Protocol: Document 10/01/19 11:23 [facility] (Rec: 10/01/19 12:11 [facility] [id number]) Hot Pack/Cold Pack Treatment low back Patient Position Hooklying Treatment Duration (minutes) 15 PT-OP-T Assessment and Plan Start: 09/26/19 08:13 Freq: Status: Active Protocol: Document 10/01/19 11:23 [facility] (Rec: 10/01/19 12:11 [facility] [id number]) Physical Therapy Assessment Goals strength Short Term Goal (STG) Pt will be indep with HEP STG Duration 10/27/19 Recreational Therapy Aide Goal (LTG) Pt will score 4+/5 on LE strength & 3/5 LPM, EFT & VCT in order to show improved stability without pain in order to allow him to do all his typical activities without inc pain. LTG Duration 11/27/19 ROM Short Term Goal (STG) Pt will have full ROM of lumbar spine without pain. STG Duration Recreational Therapy Aide Goal (LTG) Pt will be able to his full job in order to paricipate in all work duties without inc pain. LTG Duration 11/27/19 Oswestry Impairment 19/50 Short Term Goal (STG) Pt improve his score to 13/50 to show improvement in functional mobility STG Duration 10/27/19 [facility] Goal (LTG) Pt improve his score to 3/50 to show improvement in functional mobility LTG Duration 11/27/19 Assessment Summary Assessment Pt required significant cueing for hip exercises to maintain neutral body position . Min cuieng required for uspine core stabilty except to use hands to watch pelvis movement on marching exercise. Pt had signifcant difficulty with pelvic motions for rolling especially when combined with upper trunk movements for rolling Physical Therapy Plan Frequency and Duration Frequency of Treatment 2x/Week Duration of Treatment 2 months Plan of Care Start Date 09/26/19 Plan of Care End Date 11/27/19 Next Visit Focus/Plan Next Note Type Treatment Note Next Visit Plan review hip exercises & progress supine core stABILITY , manual therapy as needed, PNF
--- NOTE | 2019-10-04 15:49 | PT.OTN ---
Current Diagnoses Low back pain (10/04/19) Abnormal posture (10/04/19) Weakness (10/04/19) Physical Therapy Treatment Note PT-OP-A Visit Information Start: 09/26/19 08:13 Freq: Status: Active Protocol: Document 10/04/19 14:30 DCW (Rec: 10/04/19 15:49 DCW [id number]) Out-Patient Physical Therapy Visit Information Visit Information Visit Type Treatment Note Visit Start Time 14:30 Visit Stop Time 15:20 Total Visit Minutes 50 Visit Number 3 Number of PRODUCTION OPERATOR Visits 0 PT-OP-B Current Condition Start: 09/26/19 08:13 Freq: Status: Active Protocol: Document 09/26/19 15:13 LR (Rec: 09/26/19 16:00 [facility] [id number]) Current Condition History of Current Condition Onset Date 1 month ago Current Complaints LBP History of Current Condition Pt reports about 1 month ago he was crouched into a small space for about 10 min and he had excruciating pain after. Pt reports he feels likes he gets about 2-3% better per day and is about 40% better now compared to 1 month ago. Pt reports he took tylenol 4 times aday at first but now is only taking it once. Pt reprots it is difficult getting socks and pants on. Pt reprots history of B lung transplant last Jul 2018. He reports history of prostate cancer where he had a seed implant and is now cleared. 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 Pt has history of LBP in past from injury 20 years ago. Pt repots he now puts a pillow between his knees to help with sleeping. Pt walks dog 1-2 miles/day. Pt reports after the lung surgery he has had numbness in ant L leg and B ankles. Pt reports overall has recovered from lung surgery but is still a little weaker. Lung transplant was d/t pulmonary fibrosis. Pt reports always a little bit of pain in chest since surgery. Prior Treatments and Tests Xray of his back showed history of T11 compression fracture; acupuncture 2x- helpful Treatment Goals Patient/Caregiver Goals eliminate the pain, be more flexible, easier time at work, get dressed easier PT-OP-C Subjective Start: 09/26/19 08:13 Freq: Status: Active Protocol: Document 10/04/19 14:30 DCW (Rec: 10/04/19 15:49 DCW [id number]) OP-PT Subjective Patient Comments Patient Comments I'm getting a small percentage better every day. PT-OP-F Manual Assessment Start: 09/26/19 08:13 Freq: Status: Active Protocol: Document 09/26/19 15:13 LR (Rec: 09/26/19 16:00 [facility] [id number]) Manual Assessments Soft Tissue Assessment Soft Tissue Mobility Assessment tight QL B PT-OP-J Posture/Palpation/Skin Start: 09/26/19 08:13 Freq: Status: Active Protocol: Document 09/26/19 15:13 LR (Rec: 09/26/19 16:00 [facility] [id number]) Posture Evaluation Paulo Postural Classification System Paulo Postural Classifications Posterior/Anterior Elbow Flexion Test 1 Lumbar Protective Mechanism Left AP 1 Lumbar Protective Mechanism Right AP 1 Lumbar Protective Mechanism Left PA 1 Lumbar Protective Mechanism Right PA 2 PT-OP-K Range of Motion Start: 09/26/19 08:13 Freq: Status: Active Protocol: Document 09/26/19 15:13 [facility] (Rec: 09/26/19 16:00 [facility] [id number]) Lumbar Spine Range of Motion Lumbar Spine Active Degrees Rotation Left 53 Rotation Right 47 ROM Limitations Pain Comments SB R:9 cm SB L: 11 cm flex: 5cm pain ext:4.5 cm PT-OP-L Special Tests Start: 09/26/19 08:13 Freq: Status: Active Protocol: Document 09/26/19 15:13 [facility] (Rec: 09/26/19 16:00 [facility] [id number]) Special Tests Lumbar Spine Special Tests Slump Test Results positive B Compression Test Results relief CADY Test Results Neg R; mild L hip pain Rocky Test Results modified rocky (hip flexor only tested)-mild tightness B Straight Leg Raise Test Results R 68-HS tightness; L 82 HS tightenss and ant L thigh pain PT-OP-M Strength Start: 09/26/19 08:13 Freq: Status: Active Protocol: Document 09/26/19 15:13 LR (Rec: 09/26/19 16:00 [facility] [id number]) Hip Strength Hip Manual Muscle Testing Left Flexion (L2) 3 Fair Abduction 3 Fair Adduction 3+ Fair+ External Rotation 3 Fair Internal Rotation 3 Fair Right Flexion (L2) 3+ Fair+ Abduction 3+ Fair+ Adduction 3 Fair External Rotation 3+ Fair+ Internal Rotation 3+ Fair+ Comments significant dec core stability with hip motions Knee Strength Knee Manual Muscle Testing Left Flexion (S2) 4- Good- Extension (L3) 3+ Fair+ Right Flexion (S2) 4+ Good+ Extension (L3) 3+ Fair+ Ankle/Foot Strength Ankle and Foot Manual Muscle Testing Left Dorsiflexion (L4) 3+ Fair+ Plantarflexion (S1) 3+ Fair+ Right Dorsiflexion (L4) 3 Fair Plantarflexion (S1) 3 Fair Comments PF tested seated B PT-OP-Q Treatments Start: 09/26/19 08:13 Freq: Status: Active Protocol: Document 10/04/19 14:30 DCW (Rec: 10/04/19 15:49 DCW [id number]) Therapeutic Exercises Supine Exercises rotation Supine Exercise Name LTR /c T-ball Side bilateral Reps/Minutes 10 Comments segmental rotation Sidelying Exercises abd Sidelying Exercise Name hip Side bilateral Reps/Minutes 10 IR Sidelying Exercise Name reverse clam Side bilateral Reps/Minutes 10 ER Sidelying Exercise Name clamshell Side bilateral Reps/Minutes 10 Manual Therapy Treatment Soft Tissue Mobilization QL & ES Body Location B Mobilization Type Rolling,Strumming,Sustained Pressure Intensity/Depth Moderate Body Position Sidelying Manual Traction Lumbar Details Short axis /c strap Body Position Hooklying PT-OP-R Modalities Start: 09/26/19 08:13 Freq: Status: Active Protocol: Document 10/04/19 14:30 DCW (Rec: 10/04/19 15:49 DCW [id number]) Hot Pack/Cold Pack Treatment low back Patient Position Hooklying Treatment Duration (minutes) 15 PT-OP-T Assessment and Plan Start: 09/26/19 08:13 Freq: Status: Active Protocol: Document 10/04/19 14:30 DCW (Rec: 10/04/19 15:49 DCW [id number]) Physical Therapy Assessment Impairments Impairments Activity Tolerance,Balance, Functional Activities, Functional Mobility,Gait,Pain, Posture,ROM,Soft Tissue Mobility,Strength Goals strength Short Term Goal (STG) Pt will be indep with HEP STG Duration 10/27/19 [facility] Goal (LTG) Pt will score 4+/5 on LE strength & 3/5 LPM, EFT & VCT in order to show improved stability without pain in order to allow him to do all his typical activities without inc pain. LTG Duration 11/27/19 ROM Short Term Goal (STG) Pt will have full ROM of lumbar spine without pain. STG Duration 10/27/19 [facility] Goal (LTG) Pt will be able to his full job in order to paricipate in all work duties without inc pain. LTG Duration 11/27/19 Oswestry Impairment 19/50 Short Term Goal (STG) Pt improve his score to 13/50 to show improvement in functional mobility STG Duration 10/27/19 Mcc Goal (LTG) Pt improve his score to 3/50 to show improvement in functional mobility LTG Duration 11/27/19 Assessment Summary Assessment Pt had some questions and difficulty reproducing HEP, but was able to accurately replicate with instruction. Pt tolerated treatment well today, continues to improve. Physical Therapy Plan Frequency and Duration Frequency of Treatment 2x/Week Duration of Treatment 2 months Plan of Care Start Date 09/26/19 Plan of Care End Date 11/27/19 Next Visit Focus/Plan Next Note Type Treatment Note Next Visit Plan review hip exercises & progress supine core stABILITY , manual therapy as needed, PNF
--- NOTE | 2019-10-08 15:56 | PT.OTN ---
Current Diagnoses Low back pain (10/08/19) Abnormal posture (10/08/19) Weakness (10/08/19) Physical Therapy Treatment Note PT-OP-A Visit Information Start: 09/26/19 08:13 Freq: Status: Active Protocol: Document 10/08/19 15:15 DCW (Rec: 10/08/19 15:56 DCW [id number]) Out-Patient Physical Therapy Visit Information Visit Information Visit Type Treatment Note Visit Start Time 15:15 Visit Stop Time 16:10 Total Visit Minutes 55 Visit Number 4 Number of VINEYARD SUPERVISOR Visits 0 PT-OP-B Current Condition Start: 09/26/19 08:13 Freq: Status: Active Protocol: Document 09/26/19 15:13 [facility] (Rec: 09/26/19 16:00 [facility] [id number]) Current Condition History of Current Condition Onset Date 1 month ago Current Complaints LBP History of Current Condition Pt reports about 1 month ago he was crouched into a small space for about 10 min and he had excruciating pain after. Pt reports he feels likes he gets about 2-3% better per day and is about 40% better now compared to 1 month ago. Pt reports he took tylenol 4 times aday at first but now is only taking it once. Pt reprots it is difficult getting socks and pants on. Pt reprots history of B lung transplant last Jul 2018. He reports history of prostate cancer where he had a seed implant and is now cleared. 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 Pt has history of LBP in past from injury 20 years ago. Pt repots he now puts a pillow between his knees to help with sleeping. Pt walks dog 1-2 miles/day. Pt reports after the lung surgery he has had numbness in ant L leg and B ankles. Pt reports overall has recovered from lung surgery but is still a little weaker. Lung transplant was d/t pulmonary fibrosis. Pt reports always a little bit of pain in chest since surgery. Prior Treatments and Tests Xray of his back showed history of T11 compression fracture; acupuncture 2x- helpful Treatment Goals Patient/Caregiver Goals eliminate the pain, be more flexible, easier time at work, get dressed easier PT-OP-C Subjective Start: 09/26/19 08:13 Freq: Status: Active Protocol: Document 10/08/19 15:15 DCW (Rec: 10/08/19 15:56 DCW [id number]) OP-PT Subjective Patient Comments Patient Comments I'm feeling better each day, I'm off the Tylenol now, which is nice. Patient Reported Progress Improving PT-OP-F Manual Assessment Start: 09/26/19 08:13 Freq: Status: Active Protocol: Document 09/26/19 15:13 LR (Rec: 09/26/19 16:00 [facility] [id number]) Manual Assessments Soft Tissue Assessment Soft Tissue Mobility Assessment tight QL B PT-OP-J Posture/Palpation/Skin Start: 09/26/19 08:13 Freq: Status: Active Protocol: Document 09/26/19 15:13 LR (Rec: 09/26/19 16:00 [facility] [id number]) Posture Evaluation Paulo Postural Classification System Paulo Postural Classifications Posterior/Anterior Elbow Flexion Test 1 Lumbar Protective Mechanism Left AP 1 Lumbar Protective Mechanism Right AP 1 Lumbar Protective Mechanism Left PA 1 Lumbar Protective Mechanism Right PA 2 PT-OP-K Range of Motion Start: 09/26/19 08:13 Freq: Status: Active Protocol: Document 09/26/19 15:13 LR (Rec: 09/26/19 16:00 [facility] [id number]) Lumbar Spine Range of Motion Lumbar Spine Active Degrees Rotation Left 53 Rotation Right 47 ROM Limitations Pain Comments SB R:9 cm SB L: 11 cm flex: 5cm pain ext:4.5 cm PT-OP-L Special Tests Start: 09/26/19 08:13 Freq: Status: Active Protocol: Document 09/26/19 15:13 [facility] (Rec: 09/26/19 16:00 [facility] [id number]) Special Tests Lumbar Spine Special Tests Slump Test Results positive B Compression Test Results relief CADY Test Results Neg R; mild L hip pain Rocky Test Results modified rocky (hip flexor only tested)-mild tightness B Straight Leg Raise Test Results R 68-HS tightness; L 82 HS tightenss and ant L thigh pain PT-OP-M Strength Start: 09/26/19 08:13 Freq: Status: Active Protocol: Document 09/26/19 15:13 LR (Rec: 09/26/19 16:00 [facility] [id number]) Hip Strength Hip Manual Muscle Testing Left Flexion (L2) 3 Fair Abduction 3 Fair Adduction 3+ Fair+ External Rotation 3 Fair Internal Rotation 3 Fair Right Flexion (L2) 3+ Fair+ Abduction 3+ Fair+ Adduction 3 Fair External Rotation 3+ Fair+ Internal Rotation 3+ Fair+ Comments significant dec core stability with hip motions Knee Strength Knee Manual Muscle Testing Left Flexion (S2) 4- Good- Extension (L3) 3+ Fair+ Right Flexion (S2) 4+ Good+ Extension (L3) 3+ Fair+ Ankle/Foot Strength Ankle and Foot Manual Muscle Testing Left Dorsiflexion (L4) 3+ Fair+ Plantarflexion (S1) 3+ Fair+ Right Dorsiflexion (L4) 3 Fair Plantarflexion (S1) 3 Fair Comments PF tested seated B PT-OP-Q Treatments Start: 09/26/19 08:13 Freq: Status: Active Protocol: Document 10/08/19 15:15 DCW (Rec: 10/08/19 15:56 DCW [id number]) Gym Equipment Therapeutic Ball 1 Exercise Details Trunk Rotation vs Resistance Ball Size/Color 65 cm - Green Lv 2 T-band Body Position Sitting Therapeutic Exercises Supine Exercises bridge Supine Exercise Name Bridging Reps/Minutes 10 rotation Supine Exercise Name LTR /c T-ball Side bilateral Reps/Minutes 10 Comments segmental rotation hip flex Supine Exercise Name Tabd contraction w/marching Side bilateral Manual Therapy Treatment Soft Tissue Mobilization QL & ES Body Location B Mobilization Type Rolling,Strumming,Sustained Pressure Intensity/Depth Moderate Body Position Sidelying Manual Traction Lumbar Details Short axis /c strap Body Position Hooklying PT-OP-R Modalities Start: 09/26/19 08:13 Freq: Status: Active Protocol: Document 10/08/19 15:15 DCW (Rec: 10/08/19 15:56 DCW [id number]) Hot Pack/Cold Pack Treatment low back Location Hotpack Patient Position Hooklying Treatment Duration (minutes) 15 PT-OP-T Assessment and Plan Start: 09/26/19 08:13 Freq: Status: Active Protocol: Document 10/08/19 15:15 DCW (Rec: 10/08/19 15:56 DCW [id number]) Physical Therapy Assessment Impairments Impairments Activity Tolerance,Balance, Functional Activities, Functional Mobility,Gait,Pain, Posture,ROM,Soft Tissue Mobility,Strength Goals strength Short Term Goal (STG) Pt will be indep with HEP STG Duration 10/27/19 Nursing Home Goal (LTG) Pt will score 4+/5 on LE strength & 3/5 LPM, EFT & VCT in order to show improved stability without pain in order to allow him to do all his typical activities without inc pain. LTG Duration 11/27/19 ROM Short Term Goal (STG) Pt will have full ROM of lumbar spine without pain. STG Duration 10/27/19 Financial Examiner Goal (LTG) Pt will be able to his full job in order to participate in all work duties without inc pain. LTG Duration 11/27/19 Oswestry Impairment 19/50 Short Term Goal (STG) Pt improve his score to 13/50 to show improvement in functional mobility STG Duration 10/27/19 Nursing Home Goal (LTG) Pt improve his score to 3/50 to show improvement in functional mobility LTG Duration 11/27/19 Assessment Summary Assessment Pt making good progress with his HEP, notes continued improvement in pain levels and functional mobility. Physical Therapy Plan Frequency and Duration Frequency of Treatment 2x/Week Duration of Treatment 2 months Plan of Care Start Date 09/26/19 Plan of Care End Date 11/27/19 Next Visit Focus/Plan Next Note Type Treatment Note Next Visit Plan review hip exercises & progress supine core stABILITY , manual therapy as needed, PNF
--- NOTE | 2019-10-12 12:06 | PT.OTN ---
Current Diagnoses Low back pain (10/12/19) Abnormal posture (10/12/19) Weakness (10/12/19) Physical Therapy Treatment Note PT-OP-A Visit Information Start: 09/26/19 08:13 Freq: Status: Active Protocol: Document 10/12/19 09:15 AMB (Rec: 10/12/19 09:56 AMB [id number]) Out-Patient Physical Therapy Visit Information Visit Information Visit Type Treatment Note Visit Start Time 09:15 Visit Stop Time 10:00 Total Visit Minutes 55 Visit Number 5 PT-OP-B Current Condition Start: 09/26/19 08:13 Freq: Status: Active Protocol: Document 09/26/19 15:13 [facility] (Rec: 09/26/19 16:00 [facility] [id number]) Current Condition History of Current Condition Onset Date 1 month ago Current Complaints LBP History of Current Condition Pt reports about 1 month ago he was crouched into a small space for about 10 min and he had excruciating pain after. Pt reports he feels likes he gets about 2-3% better per day and is about 40% better now compared to 1 month ago. Pt reports he took tylenol 4 times aday at first but now is only taking it once. Pt reprots it is difficult getting socks and pants on. Pt reprots history of B lung transplant last Jul 2018. He reports history of prostate cancer where he had a seed implant and is now cleared. 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 Pt has history of LBP in past from injury 20 years ago. Pt repots he now puts a pillow between his knees to help with sleeping. Pt walks dog 1-2 miles/day. Pt reports after the lung surgery he has had numbness in ant L leg and B ankles. Pt reports overall has recovered from lung surgery but is still a little weaker. Lung transplant was d/t pulmonary fibrosis. Pt reports always a little bit of pain in chest since surgery. Prior Treatments and Tests Xray of his back showed history of T11 compression fracture; acupuncture 2x- helpful Treatment Goals Patient/Caregiver Goals eliminate the pain, be more flexible, easier time at work, get dressed easier PT-OP-C Subjective Start: 09/26/19 08:13 Freq: Status: Active Protocol: Document 10/12/19 09:15 AMB (Rec: 10/12/19 09:56 AMB [id number]) OP-PT Subjective Patient Comments Patient Comments I did flare up by back when I was in a small boat yesterday. PT-OP-F Manual Assessment Start: 09/26/19 08:13 Freq: Status: Active Protocol: Document 09/26/19 15:13 LR (Rec: 09/26/19 16:00 [facility] [id number]) Manual Assessments Soft Tissue Assessment Soft Tissue Mobility Assessment tight QL B PT-OP-J Posture/Palpation/Skin Start: 09/26/19 08:13 Freq: Status: Active Protocol: Document 09/26/19 15:13 [facility] (Rec: 09/26/19 16:00 [facility] [id number]) Posture Evaluation Paulo Postural Classification System Paulo Postural Classifications Posterior/Anterior Elbow Flexion Test 1 Lumbar Protective Mechanism Left AP 1 Lumbar Protective Mechanism Right AP 1 Lumbar Protective Mechanism Left PA 1 Lumbar Protective Mechanism Right PA 2 PT-OP-K Range of Motion Start: 09/26/19 08:13 Freq: Status: Active Protocol: Document 09/26/19 15:13 [facility] (Rec: 09/26/19 16:00 [facility] [id number]) Lumbar Spine Range of Motion Lumbar Spine Active Degrees Rotation Left 53 Rotation Right 47 ROM Limitations Pain Comments SB R:9 cm SB L: 11 cm flex: 5cm pain ext:4.5 cm PT-OP-L Special Tests Start: 09/26/19 08:13 Freq: Status: Active Protocol: Document 09/26/19 15:13 [facility] (Rec: 09/26/19 16:00 [facility] [id number]) Special Tests Lumbar Spine Special Tests Slump Test Results positive B Compression Test Results relief CADY Test Results Neg R; mild L hip pain Rocky Test Results modified rocky (hip flexor only tested)-mild tightness B Straight Leg Raise Test Results R 68-HS tightness; L 82 HS tightenss and ant L thigh pain PT-OP-M Strength Start: 09/26/19 08:13 Freq: Status: Active Protocol: Document 09/26/19 15:13 [facility] (Rec: 09/26/19 16:00 [facility] [id number]) Hip Strength Hip Manual Muscle Testing Left Flexion (L2) 3 Fair Abduction 3 Fair Adduction 3+ Fair+ External Rotation 3 Fair Internal Rotation 3 Fair Right Flexion (L2) 3+ Fair+ Abduction 3+ Fair+ Adduction 3 Fair External Rotation 3+ Fair+ Internal Rotation 3+ Fair+ Comments significant dec core stability with hip motions Knee Strength Knee Manual Muscle Testing Left Flexion (S2) 4- Good- Extension (L3) 3+ Fair+ Right Flexion (S2) 4+ Good+ Extension (L3) 3+ Fair+ Ankle/Foot Strength Ankle and Foot Manual Muscle Testing Left Dorsiflexion (L4) 3+ Fair+ Plantarflexion (S1) 3+ Fair+ Right Dorsiflexion (L4) 3 Fair Plantarflexion (S1) 3 Fair Comments PF tested seated B PT-OP-Q Treatments Start: 09/26/19 08:13 Freq: Status: Active Protocol: Document 10/12/19 09:00 AMB (Rec: 10/14/19 12:06 AMB [id number]) Therapeutic Exercises Supine Exercises 1 Supine Exercise Name SLR Reps/Minutes 1x10 bridge Supine Exercise Name Bridging Reps/Minutes 10 rotation Supine Exercise Name LTR /c T-ball Side bilateral Reps/Minutes 10 Comments segmental rotation hip flex Supine Exercise Name Tabd contraction w/marching Side bilateral Sidelying Exercises abd Sidelying Exercise Name hip Side bilateral Reps/Minutes 10 ER Sidelying Exercise Name clamshell Side bilateral Reps/Minutes 10 Manual Therapy Treatment Soft Tissue Mobilization QL & ES Body Location B Mobilization Type Rolling,Strumming,Sustained Pressure Intensity/Depth Moderate Body Position Sidelying PT-OP-R Modalities Start: 09/26/19 08:13 Freq: Status: Active Protocol: Document 10/12/19 09:00 AMB (Rec: 10/14/19 12:06 AMB [id number]) Hot Pack/Cold Pack Treatment low back Location Hotpack Patient Position Hooklying Treatment Duration (minutes) 15 PT-OP-T Assessment and Plan Start: 09/26/19 08:13 Freq: Status: Active Protocol: Document 10/12/19 09:00 AMB (Rec: 10/14/19 12:06 AMB [id number]) Physical Therapy Assessment Assessment Summary Assessment Pt with pain flare up after having to bend at work more, but it is calming down today. Pt needs to continue to progress his core strength. Physical Therapy Plan Next Visit Focus/Plan Next Note Type Treatment Note Next Visit Plan Address body mechanics of working- pt needs to be able to bend, squat, crawl for work . Continue to progress core stability, manual therapy as needed, progress written HEP as able.
--- NOTE | 2019-10-17 09:42 | PT.OTN ---
Current Diagnoses Low back pain (10/17/19) Abnormal posture (10/17/19) Weakness (10/17/19) Physical Therapy Treatment Note PT-OP-A Visit Information Start: 09/26/19 08:13 Freq: Status: Active Protocol: Document 10/17/19 08:18 SP (Rec: 10/17/19 10:05 SP [id number]) Out-Patient Physical Therapy Visit Information Visit Information Visit Type Treatment Note Visit Start Time 08:18 Visit Stop Time 09:00 Total Visit Minutes 42 Visit Number 6 Number of KILN FIRER Visits 1 PT-OP-B Current Condition Start: 09/26/19 08:13 Freq: Status: Active Protocol: Document 09/26/19 15:13 [facility] (Rec: 09/26/19 16:00 [facility] [id number]) Current Condition History of Current Condition Onset Date 1 month ago Current Complaints LBP History of Current Condition Pt reports about 1 month ago he was crouched into a small space for about 10 min and he had excruciating pain after. Pt reports he feels likes he gets about 2-3% better per day and is about 40% better now compared to 1 month ago. Pt reports he took tylenol 4 times aday at first but now is only taking it once. Pt reprots it is difficult getting socks and pants on. Pt reprots history of B lung transplant last Jul 2018. He reports history of prostate cancer where he had a seed implant and is now cleared. 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 Pt has history of LBP in past from injury 20 years ago. Pt repots he now puts a pillow between his knees to help with sleeping. Pt walks dog 1-2 miles/day. Pt reports after the lung surgery he has had numbness in ant L leg and B ankles. Pt reports overall has recovered from lung surgery but is still a little weaker. Lung transplant was d/t pulmonary fibrosis. Pt reports always a little bit of pain in chest since surgery. Prior Treatments and Tests Xray of his back showed history of T11 compression fracture; acupuncture 2x- helpful Treatment Goals Patient/Caregiver Goals eliminate the pain, be more flexible, easier time at work, get dressed easier PT-OP-C Subjective Start: 09/26/19 08:13 Freq: Status: Active Protocol: Document 10/17/19 08:18 SP (Rec: 10/17/19 10:05 SP [id number]) OP-PT Subjective Patient Comments Patient Comments Pt state does feel getting 3% improvement daily, small but improving. PT-OP-F Manual Assessment Start: 09/26/19 08:13 Freq: Status: Active Protocol: Document 09/26/19 15:13 LR (Rec: 09/26/19 16:00 [facility] [id number]) Manual Assessments Soft Tissue Assessment Soft Tissue Mobility Assessment tight QL B PT-OP-J Posture/Palpation/Skin Start: 09/26/19 08:13 Freq: Status: Active Protocol: Document 09/26/19 15:13 LR (Rec: 09/26/19 16:00 [facility] [id number]) Posture Evaluation Paulo Postural Classification System Paulo Postural Classifications Posterior/Anterior Elbow Flexion Test 1 Lumbar Protective Mechanism Left AP 1 Lumbar Protective Mechanism Right AP 1 Lumbar Protective Mechanism Left PA 1 Lumbar Protective Mechanism Right PA 2 PT-OP-K Range of Motion Start: 09/26/19 08:13 Freq: Status: Active Protocol: Document 09/26/19 15:13 [facility] (Rec: 09/26/19 16:00 [facility] [id number]) Lumbar Spine Range of Motion Lumbar Spine Active Degrees Rotation Left 53 Rotation Right 47 ROM Limitations Pain Comments SB R:9 cm SB L: 11 cm flex: 5cm pain ext:4.5 cm PT-OP-L Special Tests Start: 09/26/19 08:13 Freq: Status: Active Protocol: Document 09/26/19 15:13 [facility] (Rec: 09/26/19 16:00 [facility] [id number]) Special Tests Lumbar Spine Special Tests Slump Test Results positive B Compression Test Results relief CADY Test Results Neg R; mild L hip pain Rocky Test Results modified rocky (hip flexor only tested)-mild tightness B Straight Leg Raise Test Results R 68-HS tightness; L 82 HS tightenss and ant L thigh pain PT-OP-M Strength Start: 09/26/19 08:13 Freq: Status: Active Protocol: Document 09/26/19 15:13 LR (Rec: 09/26/19 16:00 [facility] [id number]) Hip Strength Hip Manual Muscle Testing Left Flexion (L2) 3 Fair Abduction 3 Fair Adduction 3+ Fair+ External Rotation 3 Fair Internal Rotation 3 Fair Right Flexion (L2) 3+ Fair+ Abduction 3+ Fair+ Adduction 3 Fair External Rotation 3+ Fair+ Internal Rotation 3+ Fair+ Comments significant dec core stability with hip motions Knee Strength Knee Manual Muscle Testing Left Flexion (S2) 4- Good- Extension (L3) 3+ Fair+ Right Flexion (S2) 4+ Good+ Extension (L3) 3+ Fair+ Ankle/Foot Strength Ankle and Foot Manual Muscle Testing Left Dorsiflexion (L4) 3+ Fair+ Plantarflexion (S1) 3+ Fair+ Right Dorsiflexion (L4) 3 Fair Plantarflexion (S1) 3 Fair Comments PF tested seated B PT-OP-Q Treatments Start: 09/26/19 08:13 Freq: Status: Active Protocol: Document 10/17/19 08:18 SP (Rec: 10/17/19 10:05 SP [id number]) Therapeutic Exercises Supine Exercises diaphramatic breathing Reps/Minutes 5 count in/exhale bridge Supine Exercise Name core and segemental bridge Reps/Minutes x10 Comments PPT awareness cue, not LS ext lift hip flex Supine Exercise Name Tabd contraction w/marching Side bilateral Comments cued Prone Exercises quadruped bird dog Prone Exercise Name BUE /LE contact with table Resistance AROM Reps/Minutes 2x5 Comments cued neutral pelvis, and level shld Sidelying Exercises abd Sidelying Exercise Name hip Side bilateral Reps/Minutes 10 Comments cued trunk per PT-OP-R Modalities Start: 09/26/19 08:13 Freq: Status: Active Protocol: Document 10/12/19 09:00 AMB (Rec: 10/14/19 12:06 AMB [id number]) Hot Pack/Cold Pack Treatment low back Location Hotpack Patient Position Hooklying Treatment Duration (minutes) 15 PT-OP-T Assessment and Plan Start: 09/26/19 08:13 Freq: Status: Active Protocol: Document 10/17/19 08:18 SP (Rec: 10/17/19 10:05 SP [id number]) Physical Therapy Assessment Goals strength Short Term Goal (STG) Pt will be indep with HEP STG Duration 10/27/19 Retirement Goal (LTG) Pt will score 4+/5 on LE strength & 3/5 LPM, EFT & VCT in order to show improved stability without pain in order to allow him to do all his typical activities without inc pain. LTG Duration 11/27/19 ROM Short Term Goal (STG) Pt will have full ROM of lumbar spine without pain. STG Duration 10/27/19 Yard Motor Operator Goal (LTG) Pt will be able to his full job in order to paricipate in all work duties without inc pain. LTG Duration 11/27/19 Oswestry Impairment 19/50 Short Term Goal (STG) Pt improve his score to 13/50 to show improvement in functional mobility STG Duration 10/27/19 Yard Motor Operator Goal (LTG) Pt improve his score to 3/50 to show improvement in functional mobility LTG Duration 11/27/19 Assessment Summary Assessment Pt responded well to tx today. Reviewed HEP and modified SKTC to core december, bridge to core with neutral alignement and not arch LB along with segemental for ROM flexibility , cued trunk alignement during hip abd to decrease hip flexor involvement. Added diaphramatic breathing with hands at lateral ribcage for ROM and volume breath expansion for LB support 5 sec count with positive feedback. Progressed to bird dog core strengthening with LE/UE ext contact table at this time with awareness cues for sca/ pelvic alignement to compliment awareness of positions gets self into at work low to ground with commented, helpful but challenging awareness needing strength imp rovements. Physical Therapy Plan Frequency and Duration Frequency of Treatment 2x/Week Duration of Treatment 2 months Plan of Care Start Date 09/26/19 Plan of Care End Date 11/27/19 Therapeutic Interventions Modalities Cold Pack/Ice Massage,Electric Stimulation,Hot Packs Next Visit Focus/Plan Next Note Type Treatment Note Next Visit Plan Assess added diaphramatic breathing and bird dog added last tx. Continue as PT POC: Address body mechanics of working- pt needs to be able to bend, squat, crawl for work . Continue to progress core stability, manual therapy as needed, progress written HEP as able.
--- NOTE | 2019-10-19 09:00 | PT.OTN ---
Current Diagnoses Low back pain (10/19/19) Abnormal posture (10/19/19) Weakness (10/19/19) Physical Therapy Treatment Note PT-OP-A Visit Information Start: 09/26/19 08:13 Freq: Status: Active Protocol: Document 10/19/19 08:17 SP (Rec: 10/19/19 09:03 SP [id number]) Out-Patient Physical Therapy Visit Information Visit Information Visit Type Treatment Note Visit Start Time 08:17 Visit Stop Time 09:00 Total Visit Minutes 43 Visit Number 7 Number of TRANSMISSION REBUILDER Visits 2 PT-OP-B Current Condition Start: 09/26/19 08:13 Freq: Status: Active Protocol: Document 09/26/19 15:13 [facility] (Rec: 09/26/19 16:00 [facility] [id number]) Current Condition History of Current Condition Onset Date 1 month ago Current Complaints LBP History of Current Condition Pt reports about 1 month ago he was crouched into a small space for about 10 min and he had excruciating pain after. Pt reports he feels likes he gets about 2-3% better per day and is about 40% better now compared to 1 month ago. Pt reports he took tylenol 4 times aday at first but now is only taking it once. Pt reprots it is difficult getting socks and pants on. Pt reprots history of B lung transplant last Jul 2018. He reports history of prostate cancer where he had a seed implant and is now cleared. 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 Pt has history of LBP in past from injury 20 years ago. Pt repots he now puts a pillow between his knees to help with sleeping. Pt walks dog 1-2 miles/day. Pt reports after the lung surgery he has had numbness in ant L leg and B ankles. Pt reports overall has recovered from lung surgery but is still a little weaker. Lung transplant was d/t pulmonary fibrosis. Pt reports always a little bit of pain in chest since surgery. Prior Treatments and Tests Xray of his back showed history of T11 compression fracture; acupuncture 2x- helpful Treatment Goals Patient/Caregiver Goals eliminate the pain, be more flexible, easier time at work, get dressed easier PT-OP-C Subjective Start: 09/26/19 08:13 Freq: Status: Active Protocol: Document 10/19/19 08:17 SP (Rec: 10/19/19 09:03 SP [id number]) OP-PT Subjective Patient Comments Patient Comments Pt stated the exercises are working and not getting as much lower level pain. PT-OP-F Manual Assessment Start: 09/26/19 08:13 Freq: Status: Active Protocol: Document 09/26/19 15:13 [facility] (Rec: 09/26/19 16:00 [facility] [id number]) Manual Assessments Soft Tissue Assessment Soft Tissue Mobility Assessment tight QL B PT-OP-J Posture/Palpation/Skin Start: 09/26/19 08:13 Freq: Status: Active Protocol: Document 09/26/19 15:13 [facility] (Rec: 09/26/19 16:00 [facility] [id number]) Posture Evaluation Paulo Postural Classification System Paulo Postural Classifications Posterior/Anterior Elbow Flexion Test 1 Lumbar Protective Mechanism Left AP 1 Lumbar Protective Mechanism Right AP 1 Lumbar Protective Mechanism Left PA 1 Lumbar Protective Mechanism Right PA 2 PT-OP-K Range of Motion Start: 09/26/19 08:13 Freq: Status: Active Protocol: Document 09/26/19 15:13 [facility] (Rec: 09/26/19 16:00 [facility] [id number]) Lumbar Spine Range of Motion Lumbar Spine Active Degrees Rotation Left 53 Rotation Right 47 ROM Limitations Pain Comments SB R:9 cm SB L: 11 cm flex: 5cm pain ext:4.5 cm PT-OP-L Special Tests Start: 09/26/19 08:13 Freq: Status: Active Protocol: Document 09/26/19 15:13 [facility] (Rec: 09/26/19 16:00 [facility] [id number]) Special Tests Lumbar Spine Special Tests Slump Test Results positive B Compression Test Results relief CADY Test Results Neg R; mild L hip pain Rocky Test Results modified rocky (hip flexor only tested)-mild tightness B Straight Leg Raise Test Results R 68-HS tightness; L 82 HS tightenss and ant L thigh pain PT-OP-M Strength Start: 09/26/19 08:13 Freq: Status: Active Protocol: Document 09/26/19 15:13 LR (Rec: 09/26/19 16:00 [facility] [id number]) Hip Strength Hip Manual Muscle Testing Left Flexion (L2) 3 Fair Abduction 3 Fair Adduction 3+ Fair+ External Rotation 3 Fair Internal Rotation 3 Fair Right Flexion (L2) 3+ Fair+ Abduction 3+ Fair+ Adduction 3 Fair External Rotation 3+ Fair+ Internal Rotation 3+ Fair+ Comments significant dec core stability with hip motions Knee Strength Knee Manual Muscle Testing Left Flexion (S2) 4- Good- Extension (L3) 3+ Fair+ Right Flexion (S2) 4+ Good+ Extension (L3) 3+ Fair+ Ankle/Foot Strength Ankle and Foot Manual Muscle Testing Left Dorsiflexion (L4) 3+ Fair+ Plantarflexion (S1) 3+ Fair+ Right Dorsiflexion (L4) 3 Fair Plantarflexion (S1) 3 Fair Comments PF tested seated B PT-OP-Q Treatments Start: 09/26/19 08:13 Freq: Status: Active Protocol: Document 10/19/19 08:17 SP (Rec: 10/19/19 09:03 SP [id number]) Therapeutic Exercises Supine Exercises diaphramatic breathing Supine Exercise Name seated with gait belt around ribcage Comments challenged mid to lower expansion 1 Supine Exercise Name SLR Side bilateral Reps/Minutes 10 reps hold 5 sec Comments cued mid range to only facilitate core, not shlds when to high bridge Supine Exercise Name core and segemental bridge Reps/Minutes x10 Comments PPT awareness cue, not LS ext lift cued chin tuck CS pos hip flex Supine Exercise Name Tabd contraction w/marching Side bilateral Comments cued Prone Exercises quadruped bird dog Prone Exercise Name BUE /LE contact with table Resistance AROM Reps/Minutes 2x5 Comments cued neutral pelvis, and level shld Sitting Exercises TS rotation Reps/Minutes 5 hold 3 sec x3 sets R and L Standing Exercises hip abd/ext TB Reps/Minutes 3x5 alternate Comments cued chest lift, contact rail PT-OP-R Modalities Start: 09/26/19 08:13 Freq: Status: Active Protocol: Document 10/12/19 09:00 AMB (Rec: 10/14/19 12:06 AMB [id number]) Hot Pack/Cold Pack Treatment low back Location Hotpack Patient Position Hooklying Treatment Duration (minutes) 15 PT-OP-T Assessment and Plan Start: 09/26/19 08:13 Freq: Status: Active Protocol: Document 10/19/19 08:17 SP (Rec: 10/19/19 09:03 SP [id number]) Physical Therapy Assessment Goals strength Short Term Goal (STG) Pt will be indep with HEP STG Duration 10/27/19 Half-Way Goal (LTG) Pt will score 4+/5 on LE strength & 3/5 LPM, EFT & VCT in order to show improved stability without pain in order to allow him to do all his typical activities without inc pain. LTG Duration 11/27/19 ROM Short Term Goal (STG) Pt will have full ROM of lumbar spine without pain. STG Duration 10/27/19 Half-Way Goal (LTG) Pt will be able to his full job in order to paricipate in all work duties without inc pain. LTG Duration 11/27/19 Oswestry Impairment 19/50 Short Term Goal (STG) Pt improve his score to 13/50 to show improvement in functional mobility STG Duration 10/27/19 Documentation Billing Clerk Goal (LTG) Pt improve his score to 3/50 to show improvement in functional mobility LTG Duration 11/27/19 Assessment Summary Assessment Reviewed HEP: doing well with supine core ex with occasional cuing for PPT or CS ext, added band walks, thoracic rotation seated/quadruped for increased flexiblity for reported tightness discomfort during work. Positive response to tx. Physical Therapy Plan Frequency and Duration Frequency of Treatment 2x/Week Duration of Treatment 2 months Plan of Care Start Date 09/26/19 Plan of Care End Date 11/27/19 Therapeutic Interventions Modalities Cold Pack/Ice Massage,Electric Stimulation,Hot Packs Next Visit Focus/Plan Next Note Type Treatment Note Next Visit Plan Assess added lateral side step TB, TS rotation seated/ quadruped. Continue as PT POC: Address body mechanics of working- pt needs to be able to bend, squat, crawl for work . Continue to progress core stability, manual therapy as needed, progress written HEP as able.
--- NOTE | 2019-10-22 09:00 | PT.OTN ---
Current Diagnoses Low back pain (10/22/19) Abnormal posture (10/22/19) Weakness (10/22/19) Physical Therapy Treatment Note PT-OP-A Visit Information Start: 09/26/19 08:13 Freq: Status: Active Protocol: Document 10/22/19 08:15 SP (Rec: 10/22/19 09:02 SP [id number]) Out-Patient Physical Therapy Visit Information Visit Information Visit Type Treatment Note Visit Start Time 08:15 Visit Stop Time 09:00 Total Visit Minutes 45 Visit Number 8 Number of COMMERCIAL TIRE SERVICE TECHNICIAN Visits 3 PT-OP-B Current Condition Start: 09/26/19 08:13 Freq: Status: Active Protocol: Document 09/26/19 15:13 [facility] (Rec: 09/26/19 16:00 [facility] [id number]) Current Condition History of Current Condition Onset Date 1 month ago Current Complaints LBP History of Current Condition Pt reports about 1 month ago he was crouched into a small space for about 10 min and he had excruciating pain after. Pt reports he feels likes he gets about 2-3% better per day and is about 40% better now compared to 1 month ago. Pt reports he took tylenol 4 times aday at first but now is only taking it once. Pt reprots it is difficult getting socks and pants on. Pt reprots history of B lung transplant last Jul 2018. He reports history of prostate cancer where he had a seed implant and is now cleared. 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 Pt has history of LBP in past from injury 20 years ago. Pt repots he now puts a pillow between his knees to help with sleeping. Pt walks dog 1-2 miles/day. Pt reports after the lung surgery he has had numbness in ant L leg and B ankles. Pt reports overall has recovered from lung surgery but is still a little weaker. Lung transplant was d/t pulmonary fibrosis. Pt reports always a little bit of pain in chest since surgery. Prior Treatments and Tests Xray of his back showed history of T11 compression fracture; acupuncture 2x- helpful Treatment Goals Patient/Caregiver Goals eliminate the pain, be more flexible, easier time at work, get dressed easier PT-OP-C Subjective Start: 09/26/19 08:13 Freq: Status: Active Protocol: Document 10/22/19 08:15 SP (Rec: 10/22/19 09:02 SP [id number]) OP-PT Subjective Patient Comments Patient Comments Pt stated pain is still less approx 1/10 more noteably when having to look up under boats low to ground and under mattresses to equipment underneath (supports mattress on head as looks under with slight flexed trunk posture). PT-OP-F Manual Assessment Start: 09/26/19 08:13 Freq: Status: Active Protocol: Document 09/26/19 15:13 [facility] (Rec: 09/26/19 16:00 [facility] [id number]) Manual Assessments Soft Tissue Assessment Soft Tissue Mobility Assessment tight QL B PT-OP-J Posture/Palpation/Skin Start: 09/26/19 08:13 Freq: Status: Active Protocol: Document 09/26/19 15:13 [facility] (Rec: 09/26/19 16:00 [facility] [id number]) Posture Evaluation Paulo Postural Classification System Paulo Postural Classifications Posterior/Anterior Elbow Flexion Test 1 Lumbar Protective Mechanism Left AP 1 Lumbar Protective Mechanism Right AP 1 Lumbar Protective Mechanism Left PA 1 Lumbar Protective Mechanism Right PA 2 PT-OP-K Range of Motion Start: 09/26/19 08:13 Freq: Status: Active Protocol: Document 09/26/19 15:13 [facility] (Rec: 09/26/19 16:00 [facility] [id number]) Lumbar Spine Range of Motion Lumbar Spine Active Degrees Rotation Left 53 Rotation Right 47 ROM Limitations Pain Comments SB R:9 cm SB L: 11 cm flex: 5cm pain ext:4.5 cm PT-OP-L Special Tests Start: 09/26/19 08:13 Freq: Status: Active Protocol: Document 09/26/19 15:13 [facility] (Rec: 09/26/19 16:00 [facility] [id number]) Special Tests Lumbar Spine Special Tests Slump Test Results positive B Compression Test Results relief CADY Test Results Neg R; mild L hip pain Rocky Test Results modified rocky (hip flexor only tested)-mild tightness B Straight Leg Raise Test Results R 68-HS tightness; L 82 HS tightenss and ant L thigh pain PT-OP-M Strength Start: 09/26/19 08:13 Freq: Status: Active Protocol: Document 09/26/19 15:13 [facility] (Rec: 09/26/19 16:00 [facility] [id number]) Hip Strength Hip Manual Muscle Testing Left Flexion (L2) 3 Fair Abduction 3 Fair Adduction 3+ Fair+ External Rotation 3 Fair Internal Rotation 3 Fair Right Flexion (L2) 3+ Fair+ Abduction 3+ Fair+ Adduction 3 Fair External Rotation 3+ Fair+ Internal Rotation 3+ Fair+ Comments significant dec core stability with hip motions Knee Strength Knee Manual Muscle Testing Left Flexion (S2) 4- Good- Extension (L3) 3+ Fair+ Right Flexion (S2) 4+ Good+ Extension (L3) 3+ Fair+ Ankle/Foot Strength Ankle and Foot Manual Muscle Testing Left Dorsiflexion (L4) 3+ Fair+ Plantarflexion (S1) 3+ Fair+ Right Dorsiflexion (L4) 3 Fair Plantarflexion (S1) 3 Fair Comments PF tested seated B PT-OP-Q Treatments Start: 09/26/19 08:13 Freq: Status: Active Protocol: Document 10/22/19 08:15 SP (Rec: 10/22/19 09:02 SP [id number]) Therapeutic Exercises Supine Exercises bridge Supine Exercise Name bridge hold abd TB Resistance Tb #1 Reps/Minutes 3x5 Comments cued PPT, and neutral CS hip flex Supine Exercise Name Double leg lift 90/90 Reps/Minutes 3x5 Comments cued PPT, and neutral CS Prone Exercises quadruped bird dog Prone Exercise Name BUE /LE contact with table Resistance AROM Reps/Minutes 2x5 Comments cued neutral pelvis, and level shld (lift) Standing Exercises shoulder ext Resistance TB #3 Reps/Minutes 3x10 Comments cued PPT, chest lift/ LT facilitation, neutral CS , hip abd/ext TB Reps/Minutes 3x10 alternate Comments cued chest lift, contact rail, small ra nge glut facilitation PT-OP-R Modalities Start: 09/26/19 08:13 Freq: Status: Active Protocol: Document 10/12/19 09:00 AMB (Rec: 10/14/19 12:06 AMB [id number]) Hot Pack/Cold Pack Treatment low back Location Hotpack Patient Position Hooklying Treatment Duration (minutes) 15 PT-OP-T Assessment and Plan Start: 09/26/19 08:13 Freq: Status: Active Protocol: Document 10/22/19 08:15 SP (Rec: 10/22/19 09:02 SP [id number]) Physical Therapy Assessment Goals strength Short Term Goal (STG) Pt will be indep with HEP STG Duration 10/27/19 Correction Goal (LTG) Pt will score 4+/5 on LE strength & 3/5 LPM, EFT & VCT in order to show improved stability without pain in order to allow him to do all his typical activities without inc pain. LTG Duration 11/27/19 ROM Short Term Goal (STG) Pt will have full ROM of lumbar spine without pain. STG Duration 10/27/19 Group Sales Coordinator Goal (LTG) Pt will be able to his full job in order to paricipate in all work duties without inc pain. LTG Duration 11/27/19 Oswestry Impairment 19/50 Short Term Goal (STG) Pt improve his score to 13/50 to show improvement in functional mobility STG Duration 10/27/19 Group Sales Coordinator Goal (LTG) Pt improve his score to 3/50 to show improvement in functional mobility LTG Duration 11/27/19 Assessment Summary Assessment Reviewed HEP changed to bridge abd TB, double core lift, bird dog continue, standing hip abd/ext and added core facilitation shld ext with cuing for most PPT, chest lift with CS awareness to decrease LS recruitment discomfort. Pt responded well and lessened HEP. Physical Therapy Plan Frequency and Duration Frequency of Treatment 2x/Week Duration of Treatment 2 months Plan of Care Start Date 09/26/19 Plan of Care End Date 11/27/19 Therapeutic Interventions Modalities Cold Pack/Ice Massage,Electric Stimulation,Hot Packs Next Visit Focus/Plan Next Note Type Treatment Note Next Visit Plan Assess reponse to HEP added shld ext. next add diagonal and pec stretch,CS/LS stretch. Continue as PT POC: Address body mechanics of working- pt needs to be able to bend, squat, crawl for work . Continue to progress core stability, manual therapy as needed, progress written HEP as able.
--- NOTE | 2019-10-26 09:05 | PT.OTN ---
Current Diagnoses Low back pain (10/26/19) Abnormal posture (10/26/19) Weakness (10/26/19) Physical Therapy Treatment Note PT-OP-A Visit Information Start: 09/26/19 08:13 Freq: Status: Active Protocol: Document 10/26/19 08:22 SP (Rec: 10/26/19 09:33 SP [id number]) Out-Patient Physical Therapy Visit Information Visit Information Visit Type Treatment Note Visit Start Time 08:22 Visit Stop Time 09:05 Total Visit Minutes 43 Visit Number 9 Number of AGRICULTURAL CROP FARM MANAGER Visits 4 PT-OP-B Current Condition Start: 09/26/19 08:13 Freq: Status: Active Protocol: Document 09/26/19 15:13 [facility] (Rec: 09/26/19 16:00 [facility] [id number]) Current Condition History of Current Condition Onset Date 1 month ago Current Complaints LBP History of Current Condition Pt reports about 1 month ago he was crouched into a small space for about 10 min and he had excruciating pain after. Pt reports he feels likes he gets about 2-3% better per day and is about 40% better now compared to 1 month ago. Pt reports he took tylenol 4 times aday at first but now is only taking it once. Pt reprots it is difficult getting socks and pants on. Pt reprots history of B lung transplant last Jul 2018. He reports history of prostate cancer where he had a seed implant and is now cleared. 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 Pt has history of LBP in past from injury 20 years ago. Pt repots he now puts a pillow between his knees to help with sleeping. Pt walks dog 1-2 miles/day. Pt reports after the lung surgery he has had numbness in ant L leg and B ankles. Pt reports overall has recovered from lung surgery but is still a little weaker. Lung transplant was d/t pulmonary fibrosis. Pt reports always a little bit of pain in chest since surgery. Prior Treatments and Tests Xray of his back showed history of T11 compression fracture; acupuncture 2x- helpful Treatment Goals Patient/Caregiver Goals eliminate the pain, be more flexible, easier time at work, get dressed easier PT-OP-C Subjective Start: 09/26/19 08:13 Freq: Status: Active Protocol: Document 10/26/19 08:22 SP (Rec: 10/26/19 09:33 SP [id number]) OP-PT Subjective Patient Comments Patient Comments Pt stated his back has been sore after having to do some shoveling the past few days but doing ok, still s eeing improvements like walking the dog 1/2 mile with incline/ decline getting easier and feel stronger. PT-OP-F Manual Assessment Start: 09/26/19 08:13 Freq: Status: Active Protocol: Document 09/26/19 15:13 [facility] (Rec: 09/26/19 16:00 [facility] [id number]) Manual Assessments Soft Tissue Assessment Soft Tissue Mobility Assessment tight QL B PT-OP-J Posture/Palpation/Skin Start: 09/26/19 08:13 Freq: Status: Active Protocol: Document 09/26/19 15:13 [facility] (Rec: 09/26/19 16:00 [facility] [id number]) Posture Evaluation Paulo Postural Classification System Paulo Postural Classifications Posterior/Anterior Elbow Flexion Test 1 Lumbar Protective Mechanism Left AP 1 Lumbar Protective Mechanism Right AP 1 Lumbar Protective Mechanism Left PA 1 Lumbar Protective Mechanism Right PA 2 PT-OP-K Range of Motion Start: 09/26/19 08:13 Freq: Status: Active Protocol: Document 09/26/19 15:13 [facility] (Rec: 09/26/19 16:00 [facility] [id number]) Lumbar Spine Range of Motion Lumbar Spine Active Degrees Rotation Left 53 Rotation Right 47 ROM Limitations Pain Comments SB R:9 cm SB L: 11 cm flex: 5cm pain ext:4.5 cm PT-OP-L Special Tests Start: 09/26/19 08:13 Freq: Status: Active Protocol: Document 09/26/19 15:13 [facility] (Rec: 09/26/19 16:00 [facility] [id number]) Special Tests Lumbar Spine Special Tests Slump Test Results positive B Compression Test Results relief CADY Test Results Neg R; mild L hip pain Rocky Test Results modified rocky (hip flexor only tested)-mild tightness B Straight Leg Raise Test Results R 68-HS tightness; L 82 HS tightenss and ant L thigh pain PT-OP-M Strength Start: 09/26/19 08:13 Freq: Status: Active Protocol: Document 09/26/19 15:13 [facility] (Rec: 09/26/19 16:00 [facility] [id number]) Hip Strength Hip Manual Muscle Testing Left Flexion (L2) 3 Fair Abduction 3 Fair Adduction 3+ Fair+ External Rotation 3 Fair Internal Rotation 3 Fair Right Flexion (L2) 3+ Fair+ Abduction 3+ Fair+ Adduction 3 Fair External Rotation 3+ Fair+ Internal Rotation 3+ Fair+ Comments significant dec core stability with hip motions Knee Strength Knee Manual Muscle Testing Left Flexion (S2) 4- Good- Extension (L3) 3+ Fair+ Right Flexion (S2) 4+ Good+ Extension (L3) 3+ Fair+ Ankle/Foot Strength Ankle and Foot Manual Muscle Testing Left Dorsiflexion (L4) 3+ Fair+ Plantarflexion (S1) 3+ Fair+ Right Dorsiflexion (L4) 3 Fair Plantarflexion (S1) 3 Fair Comments PF tested seated B PT-OP-Q Treatments Start: 09/26/19 08:13 Freq: Status: Active Protocol: Document 10/26/19 08:22 SP (Rec: 10/26/19 09:33 SP [id number]) Therapeutic Exercises Standing Exercises Pec corner stretch Reps/Minutes 30 x3 TS ext Equipment Used Rolled towel roll HABD Resistance Tb #1 Reps/Minutes 3x10 shoulder ext Resistance TB #3 Reps/Minutes 3x10 Comments cued PPT, chest lift/ LT facilitation, neutral CS , hip abd/ext TB Reps/Minutes 3x10 alternate Comments cued chest lift, contact rail, small ra nge glut facilitation PT-OP-R Modalities Start: 09/26/19 08:13 Freq: Status: Active Protocol: Document 10/12/19 09:00 AMB (Rec: 10/14/19 12:06 AMB [id number]) Hot Pack/Cold Pack Treatment low back Location Hotpack Patient Position Hooklying Treatment Duration (minutes) 15 PT-OP-T Assessment and Plan Start: 09/26/19 08:13 Freq: Status: Active Protocol: Document 10/26/19 08:22 SP (Rec: 10/26/19 09:33 SP [id number]) Physical Therapy Assessment Goals strength Short Term Goal (STG) Pt will be indep with HEP STG Duration 10/27/19 Estimator Lumber Goal (LTG) Pt will score 4+/5 on LE strength & 3/5 LPM, EFT & VCT in order to show improved stability without pain in order to allow him to do all his typical activities without inc pain. LTG Duration 11/27/19 ROM Short Term Goal (STG) Pt will have full ROM of lumbar spine without pain. STG Duration 10/27/19 Intermediate Goal (LTG) Pt will be able to his full job in order to paricipate in all work duties without inc pain. LTG Duration 11/27/19 Oswestry Impairment 19/50 Short Term Goal (STG) Pt improve his score to 13/50 to show improvement in functional mobility STG Duration 10/27/19 Intermediate Goal (LTG) Pt improve his score to 3/50 to show improvement in functional mobility LTG Duration 11/27/19 Assessment Summary Assessment Pt seeing improvement in decreased pain, increased strength during his walks with the dog and breathing improving. Tx focused on standing HEP and added corner pec stretch and TS ext over towel roll then TB HABD to improved TS mobiltiy with improved LS stabilization during added ex. Pt improved upright posture leaving. Physical Therapy Plan Frequency and Duration Frequency of Treatment 2x/Week Duration of Treatment 2 months Plan of Care Start Date 09/26/19 Plan of Care End Date 11/27/19 Therapeutic Interventions Modalities Cold Pack/Ice Massage,Electric Stimulation,Hot Packs Next Visit Focus/Plan Next Note Type Treatment Note Next Visit Plan Assess reponse to HEP added pec stretch, ts ext towel roll and HABD TB. Continue as PT POC: Address body mechanics of working- pt needs to be able to bend, squat, crawl for work . Continue to progress core stability, manual therapy as needed, progress written HEP as able.
--- NOTE | 2019-10-31 10:09 | PT.OTN ---
Current Diagnoses Low back pain (10/31/19) Abnormal posture (10/31/19) Weakness (10/31/19) Physical Therapy Treatment Note PT-OP-A Visit Information Start: 09/26/19 08:13 Freq: Status: Active Protocol: Document 10/31/19 08:16 [facility] (Rec: 10/31/19 10:07 [facility] [id number]) Out-Patient Physical Therapy Visit Information Visit Information Visit Type Progress Note Visit Note 10/19 Visit Start Time 08:16 Visit Stop Time 08:56 Total Visit Minutes 40 Visit Number 10 Number of MISSION COMMANDER Visits 0 PT-OP-B Current Condition Start: 09/26/19 08:13 Freq: Status: Active Protocol: Document 09/26/19 15:13 [facility] (Rec: 09/26/19 16:00 [facility] [id number]) Current Condition History of Current Condition Onset Date 1 month ago Current Complaints LBP History of Current Condition Pt reports about 1 month ago he was crouched into a small space for about 10 min and he had excruciating pain after. Pt reports he feels likes he gets about 2-3% better per day and is about 40% better now compared to 1 month ago. Pt reports he took tylenol 4 times aday at first but now is only taking it once. Pt reprots it is difficult getting socks and pants on. Pt reprots history of B lung transplant last Jul 2018. He reports history of prostate cancer where he had a seed implant and is now cleared. 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 Pt has history of LBP in past from injury 20 years ago. Pt repots he now puts a pillow between his knees to help with sleeping. Pt walks dog 1-2 miles/day. Pt reports after the lung surgery he has had numbness in ant L leg and B ankles. Pt reports overall has recovered from lung surgery but is still a little weaker. Lung transplant was d/t pulmonary fibrosis. Pt reports always a little bit of pain in chest since surgery. Prior Treatments and Tests Xray of his back showed history of T11 compression fracture; acupuncture 2x- helpful Treatment Goals Patient/Caregiver Goals eliminate the pain, be more flexible, easier time at work, get dressed easier PT-OP-C Subjective Start: 09/26/19 08:13 Freq: Status: Active Protocol: Document 10/31/19 08:16 [facility] (Rec: 10/31/19 10:07 [facility] [id number]) OP-PT Subjective Patient Comments Patient Comments Pt reports he would be doing great if he didn't have to shovel. PT-OP-F Manual Assessment Start: 09/26/19 08:13 Freq: Status: Active Protocol: Document 09/26/19 15:13 [facility] (Rec: 09/26/19 16:00 [facility] [id number]) Manual Assessments Soft Tissue Assessment Soft Tissue Mobility Assessment tight QL B PT-OP-J Posture/Palpation/Skin Start: 09/26/19 08:13 Freq: Status: Active Protocol: Document 10/31/19 08:16 [facility] (Rec: 10/31/19 10:07 [facility] [id number]) Posture Evaluation Paulo Postural Classification System Vertebral Compression Test 3 Elbow Flexion Test 5 Lumbar Protective Mechanism Left AP 3 Lumbar Protective Mechanism Right AP 3 Lumbar Protective Mechanism Left PA 5 Lumbar Protective Mechanism Right PA 3 PT-OP-K Range of Motion Start: 09/26/19 08:13 Freq: Status: Active Protocol: Document 09/26/19 15:13 [facility] (Rec: 09/26/19 16:00 [facility] [id number]) Lumbar Spine Range of Motion Lumbar Spine Active Degrees Rotation Left 53 Rotation Right 47 ROM Limitations Pain Comments SB R:9 cm SB L: 11 cm flex: 5cm pain ext:4.5 cm PT-OP-L Special Tests Start: 09/26/19 08:13 Freq: Status: Active Protocol: Document 09/26/19 15:13 [facility] (Rec: 09/26/19 16:00 [facility] [id number]) Special Tests Lumbar Spine Special Tests Slump Test Results positive B Compression Test Results relief CADY Test Results Neg R; mild L hip pain Rocky Test Results modified rocky (hip flexor only tested)-mild tightness B Straight Leg Raise Test Results R 68-HS tightness; L 82 HS tightenss and ant L thigh pain PT-OP-M Strength Start: 09/26/19 08:13 Freq: Status: Active Protocol: Document 10/31/19 08:16 [facility] (Rec: 10/31/19 10:07 [facility] [id number]) Hip Strength Hip Manual Muscle Testing Left Flexion (L2) 4 Good Extension (S1) 3+ Fair+ Abduction 3+ Fair+ Adduction 4- Good- External Rotation 3+ Fair+ Internal Rotation 5 Normal Right Flexion (L2) 4- Good- Extension (S1) 3+ Fair+ Abduction 3+ Fair+ Adduction 4- Good- External Rotation 3+ Fair+ Internal Rotation 5 Normal Comments significant dec core stability with hip motions Knee Strength Knee Manual Muscle Testing Left Flexion (S2) 4 Good Extension (L3) 5 Normal Right Flexion (S2) 4+ Good+ Extension (L3) 5 Normal Ankle/Foot Strength Ankle and Foot Manual Muscle Testing Left Dorsiflexion (L4) 4 Good Plantarflexion (S1) 5 Normal Right Dorsiflexion (L4) 4 Good Plantarflexion (S1) 5 Normal Comments PF tested standing B PT-OP-Q Treatments Start: 09/26/19 08:13 Freq: Status: Active Protocol: Document 10/31/19 08:16 [facility] (Rec: 10/31/19 10:07 [facility] [id number]) Therapeutic Exercises Supine Exercises 1 Supine Exercise Name thoracic ext over towel roll Comments w/LTR Sidelying Exercises ER Sidelying Exercise Name clamshell Side bilateral Equipment Used L1 Reps/Minutes 10 Standing Exercises Pec corner stretch Reps/Minutes 30 HABD Resistance Tb #1 Reps/Minutes 15 hip abd/ext TB Reps/Minutes 10 ea B Comments cued chest lift, contact rail, small ra nge glut facilitation Other Exercises cat/camel Reps/Minutes 10 Manual Therapy Treatment Soft Tissue Mobilization QL & ES Body Location ES Mobilization Type Rolling Intensity/Depth Moderate Body Position Sidelying PT-OP-R Modalities Start: 09/26/19 08:13 Freq: Status: Active Protocol: Document 10/12/19 09:00 AMB (Rec: 10/14/19 12:06 AMB [id number]) Hot Pack/Cold Pack Treatment low back Location Hotpack Patient Position Hooklying Treatment Duration (minutes) 15 PT-OP-T Assessment and Plan Start: 09/26/19 08:13 Freq: Status: Active Protocol: Document 10/31/19 08:16 [facility] (Rec: 10/31/19 10:07 [facility] [id number]) Physical Therapy Assessment Goals strength Short Term Goal (STG) Pt will be indep with HEP STG Duration achieved Long-Term Goal (LTG) Pt will score 4+/5 on LE strength & 3/5 LPM, EFT & VCT in order to show improved stability without pain in order to allow him to do all his typical activities without inc pain. 10/31-improving still dec LTG Duration 11/27/19 ROM Short Term Goal (STG) Pt will have full ROM of lumbar spine without pain. 10/31-improving with stiffness STG Duration 10/27/19 Long-Term Goal (LTG) Pt will be able to his full job in order to paricipate in all work duties without inc pain. 10/31 able to do full duties but has some inc pain LTG Duration 11/27/19 Oswestry Impairment 19/50 Short Term Goal (STG) Pt improve his score to 13/50 to show improvement in functional mobility 10/31 n/t STG Duration 10/27/19 Long-Term Goal (LTG) Pt improve his score to 3/50 to show improvement in functional mobility LTG Duration 11/27/19 Assessment Summary Assessment Pt is making great progress with his ROM, strength and fucntional ability but is still limisted in end ranges and strength of hips and lmbar spine. He is compliant with HEP. He is liekly to cont to jprogress iw PT to work on form with exercises & improveme strength, pain and movement ability Physical Therapy Plan Frequency and Duration Frequency of Treatment 2x/Week Duration of Treatment 2 months Plan of Care Start Date 09/26/19 Plan of Care End Date 11/27/19 Next Visit Focus/Plan Next Note Type Treatment Note Next Visit Plan Cont to work on huip abd, ext, glute stability
--- NOTE | 2019-11-02 09:00 | PT.OTN ---
Current Diagnoses Low back pain (11/02/19) Abnormal posture (11/02/19) Weakness (11/02/19) Physical Therapy Treatment Note PT-OP-A Visit Information Start: 09/26/19 08:13 Freq: Status: Active Protocol: Document 11/02/19 08:15 SP (Rec: 11/02/19 09:02 SP [id number]) Out-Patient Physical Therapy Visit Information Visit Information Visit Type Treatment Note Visit Note 11/19 Visit Start Time 08:15 Visit Stop Time 09:00 Total Visit Minutes 45 Visit Number 11 Number of TYPING TEACHER Visits 1 PT-OP-B Current Condition Start: 09/26/19 08:13 Freq: Status: Active Protocol: Document 09/26/19 15:13 [facility] (Rec: 09/26/19 16:00 [facility] [id number]) Current Condition History of Current Condition Onset Date 1 month ago Current Complaints LBP History of Current Condition Pt reports about 1 month ago he was crouched into a small space for about 10 min and he had excruciating pain after. Pt reports he feels likes he gets about 2-3% better per day and is about 40% better now compared to 1 month ago. Pt reports he took tylenol 4 times aday at first but now is only taking it once. Pt reprots it is difficult getting socks and pants on. Pt reprots history of B lung transplant last Jul 2018. He reports history of prostate cancer where he had a seed implant and is now cleared. 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 Pt has history of LBP in past from injury 20 years ago. Pt repots he now puts a pillow between his knees to help with sleeping. Pt walks dog 1-2 miles/day. Pt reports after the lung surgery he has had numbness in ant L leg and B ankles. Pt reports overall has recovered from lung surgery but is still a little weaker. Lung transplant was d/t pulmonary fibrosis. Pt reports always a little bit of pain in chest since surgery. 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 4/ 10 LBP pre PT. He notices walking his dog and bridges/ LS rotation helps his pain decrease. Woresens with activities as crouching, crawling small spaces then having to look up and standign up/down multiple times at works. PT-OP-F Manual Assessment Start: 09/26/19 08:13 Freq: Status: Active Protocol: Document 09/26/19 15:13 [facility] (Rec: 09/26/19 16:00 [facility] [id number]) Manual Assessments Soft Tissue Assessment Soft Tissue Mobility Assessment tight QL B PT-OP-J Posture/Palpation/Skin Start: 09/26/19 08:13 Freq: Status: Active Protocol: Document 10/31/19 08:16 [facility] (Rec: 10/31/19 10:07 [facility] [id number]) Posture Evaluation Paulo Postural Classification System Vertebral Compression Test 3 Elbow Flexion Test 5 Lumbar Protective Mechanism Left AP 3 Lumbar Protective Mechanism Right AP 3 Lumbar Protective Mechanism Left PA 5 Lumbar Protective Mechanism Right PA 3 PT-OP-K Range of Motion Start: 09/26/19 08:13 Freq: Status: Active Protocol: Document 09/26/19 15:13 [facility] (Rec: 09/26/19 16:00 [facility] [id number]) Lumbar Spine Range of Motion Lumbar Spine Active Degrees Rotation Left 53 Rotation Right 47 ROM Limitations Pain Comments SB R:9 cm SB L: 11 cm flex: 5cm pain ext:4.5 cm PT-OP-L Special Tests Start: 09/26/19 08:13 Freq: Status: Active Protocol: Document 09/26/19 15:13 [facility] (Rec: 09/26/19 16:00 [facility] [id number]) Special Tests Lumbar Spine Special Tests Slump Test Results positive B Compression Test Results relief CADY Test Results Neg R; mild L hip pain Rocky Test Results modified rocky (hip flexor only tested)-mild tightness B Straight Leg Raise Test Results R 68-HS tightness; L 82 HS tightenss and ant L thigh pain PT-OP-M Strength Start: 09/26/19 08:13 Freq: Status: Active Protocol: Document 10/31/19 08:16 [facility] (Rec: 10/31/19 10:07 [facility] [id number]) Hip Strength Hip Manual Muscle Testing Left Flexion (L2) 4 Good Extension (S1) 3+ Fair+ Abduction 3+ Fair+ Adduction 4- Good- External Rotation 3+ Fair+ Internal Rotation 5 Normal Right Flexion (L2) 4- Good- Extension (S1) 3+ Fair+ Abduction 3+ Fair+ Adduction 4- Good- External Rotation 3+ Fair+ Internal Rotation 5 Normal Comments significant dec core stability with hip motions Knee Strength Knee Manual Muscle Testing Left Flexion (S2) 4 Good Extension (L3) 5 Normal Right Flexion (S2) 4+ Good+ Extension (L3) 5 Normal Ankle/Foot Strength Ankle and Foot Manual Muscle Testing Left Dorsiflexion (L4) 4 Good Plantarflexion (S1) 5 Normal Right Dorsiflexion (L4) 4 Good Plantarflexion (S1) 5 Normal Comments PF tested standing B PT-OP-Q Treatments Start: 09/26/19 08:13 Freq: Status: Active Protocol: Document 11/02/19 08:15 SP (Rec: 11/02/19 09:02 SP [id number]) Cardio Equipment Upper Body Ergometer (UBE) Duration (Minutes) 6 RPM 80 Seat Position 16 Height 3 showing Therapeutic Exercises Supine Exercises 1 Supine Exercise Name thoracic ext over towel roll Reps/Minutes x10 Comments w/LTR bridge Supine Exercise Name bridge hold abd TB Resistance Tb #1 Reps/Minutes 3x5 Comments cued PPT, and neutral CS Standing Exercises HABD Resistance Tb #2 Reps/Minutes 15 Comments HEP review (allow TS rotation but not LS and head follow arm ) hip abd/ext TB Standing Exercise Name performed individually ABD/Ext Resistance TB #1 Reps/Minutes 10 ea B Comments cued chest lift, contact rail, small ra nge glut facilitation PT-OP-R Modalities Start: 09/26/19 08:13 Freq: Status: Active Protocol: Document 10/12/19 09:00 AMB (Rec: 10/14/19 12:06 AMB [id number]) Hot Pack/Cold Pack Treatment low back Location Hotpack Patient Position Hooklying Treatment Duration (minutes) 15 PT-OP-T Assessment and Plan Start: 09/26/19 08:13 Freq: Status: Active Protocol: Document 11/02/19 08:15 SP (Rec: 11/02/19 09:02 SP [id number]) Physical Therapy Assessment Goals strength Short Term Goal (STG) Pt will be indep with HEP STG Duration achieved Detention Goal (LTG) Pt will score 4+/5 on LE strength & 3/5 LPM, EFT & VCT in order to show improved stability without pain in order to allow him to do all his typical activities without inc pain. 10/31-improving still dec LTG Duration 11/27/19 ROM Short Term Goal (STG) Pt will have full ROM of lumbar spine without pain. 10/31-improving with stiffness STG Duration 10/27/19 Machinist Apprentice Goal (LTG) Pt will be able to his full job in order to paricipate in all work duties without inc pain. 10/31 able to do full duties but has some inc pain LTG Duration 11/27/19 Oswestry Impairment 19/50 Short Term Goal (STG) Pt improve his score to 13/50 to show improvement in functional mobility 10/31 n/t STG Duration 10/27/19 Machinist Apprentice Goal (LTG) Pt improve his score to 3/50 to show improvement in functional mobility LTG Duration 11/27/19 Assessment Summary Assessment Pt responded well to UBE today that made my back loosen up alot more, added for follow through HEP forward puch with TB #2 with awareness of TS rotation and scapular moblitiy with LS stabilization positive feedback. Reviewed HEP ex. Pt stated LB more loosened up and 2/10 when left . Educated to try and incorporate at work after in painful positions to improve overall back health with verbal understanding. Physical Therapy Plan Frequency and Duration Frequency of Treatment 2x/Week Duration of Treatment 2 months Plan of Care Start Date 09/26/19 Plan of Care End Date 11/27/19 Therapeutic Interventions Modalities Cold Pack/Ice Massage,Electric Stimulation,Hot Packs Next Visit Focus/Plan Next Note Type Treatment Note Next Visit Plan Assess response to added forward punches TB with TS mobility. Cont to work on huip abd, ext, glute stability
--- NOTE | 2019-11-05 09:00 | PT.OTN ---
Current Diagnoses Low back pain (11/05/19) Abnormal posture (11/05/19) Weakness (11/05/19) Physical Therapy Treatment Note PT-OP-A Visit Information Start: 09/26/19 08:13 Freq: Status: Active Protocol: Document 11/05/19 08:24 SP (Rec: 11/05/19 09:09 SP [id number]) Out-Patient Physical Therapy Visit Information Visit Information Visit Type Treatment Note Visit Note 12/17 Visit Start Time 08:24 Visit Stop Time 09:00 Total Visit Minutes 36 Visit Number 12 Number of DIRECTOR OF REIMBURSEMENT Visits 2 PT-OP-B Current Condition Start: 09/26/19 08:13 Freq: Status: Active Protocol: Document 09/26/19 15:13 [facility] (Rec: 09/26/19 16:00 [facility] [id number]) Current Condition History of Current Condition Onset Date 1 month ago Current Complaints LBP History of Current Condition Pt reports about 1 month ago he was crouched into a small space for about 10 min and he had excruciating pain after. Pt reports he feels likes he gets about 2-3% better per day and is about 40% better now compared to 1 month ago. Pt reports he took tylenol 4 times aday at first but now is only taking it once. Pt reprots it is difficult getting socks and pants on. Pt reprots history of B lung transplant last Jul 2018. He reports history of prostate cancer where he had a seed implant and is now cleared. 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 Pt has history of LBP in past from injury 20 years ago. Pt repots he now puts a pillow between his knees to help with sleeping. Pt walks dog 1-2 miles/day. Pt reports after the lung surgery he has had numbness in ant L leg and B ankles. Pt reports overall has recovered from lung surgery but is still a little weaker. Lung transplant was d/t pulmonary fibrosis. Pt reports always a little bit of pain in chest since surgery. Prior Treatments and Tests Xray of his back showed history of T11 compression fracture; acupuncture 2x- helpful Treatment Goals Patient/Caregiver Goals eliminate the pain, be more flexible, easier time at work, get dressed easier PT-OP-C Subjective Start: 09/26/19 08:13 Freq: Status: Active Protocol: Document 11/05/19 08:24 SP (Rec: 11/05/19 09:09 SP [id number]) OP-PT Subjective Patient Comments Patient Comments Pt LBP 3/10 pre PT. 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 Since last week noticing doing better. PT-OP-F Manual Assessment Start: 09/26/19 08:13 Freq: Status: Active Protocol: Document 09/26/19 15:13 [facility] (Rec: 09/26/19 16:00 [facility] [id number]) Manual Assessments Soft Tissue Assessment Soft Tissue Mobility Assessment tight QL B PT-OP-J Posture/Palpation/Skin Start: 09/26/19 08:13 Freq: Status: Active Protocol: Document 10/31/19 08:16 [facility] (Rec: 10/31/19 10:07 [facility] [id number]) Posture Evaluation Paulo Postural Classification System Vertebral Compression Test 3 Elbow Flexion Test 5 Lumbar Protective Mechanism Left AP 3 Lumbar Protective Mechanism Right AP 3 Lumbar Protective Mechanism Left PA 5 Lumbar Protective Mechanism Right PA 3 PT-OP-K Range of Motion Start: 09/26/19 08:13 Freq: Status: Active Protocol: Document 09/26/19 15:13 [facility] (Rec: 09/26/19 16:00 [facility] [id number]) Lumbar Spine Range of Motion Lumbar Spine Active Degrees Rotation Left 53 Rotation Right 47 ROM Limitations Pain Comments SB R:9 cm SB L: 11 cm flex: 5cm pain ext:4.5 cm PT-OP-L Special Tests Start: 09/26/19 08:13 Freq: Status: Active Protocol: Document 09/26/19 15:13 [facility] (Rec: 09/26/19 16:00 [facility] [id number]) Special Tests Lumbar Spine Special Tests Slump Test Results positive B Compression Test Results relief CADY Test Results Neg R; mild L hip pain Rocky Test Results modified rocky (hip flexor only tested)-mild tightness B Straight Leg Raise Test Results R 68-HS tightness; L 82 HS tightenss and ant L thigh pain PT-OP-M Strength Start: 09/26/19 08:13 Freq: Status: Active Protocol: Document 10/31/19 08:16 [facility] (Rec: 10/31/19 10:07 [facility] [id number]) Hip Strength Hip Manual Muscle Testing Left Flexion (L2) 4 Good Extension (S1) 3+ Fair+ Abduction 3+ Fair+ Adduction 4- Good- External Rotation 3+ Fair+ Internal Rotation 5 Normal Right Flexion (L2) 4- Good- Extension (S1) 3+ Fair+ Abduction 3+ Fair+ Adduction 4- Good- External Rotation 3+ Fair+ Internal Rotation 5 Normal Comments significant dec core stability with hip motions Knee Strength Knee Manual Muscle Testing Left Flexion (S2) 4 Good Extension (L3) 5 Normal Right Flexion (S2) 4+ Good+ Extension (L3) 5 Normal Ankle/Foot Strength Ankle and Foot Manual Muscle Testing Left Dorsiflexion (L4) 4 Good Plantarflexion (S1) 5 Normal Right Dorsiflexion (L4) 4 Good Plantarflexion (S1) 5 Normal Comments PF tested standing B PT-OP-Q Treatments Start: 09/26/19 08:13 Freq: Status: Active Protocol: Document 11/05/19 08:24 SP (Rec: 11/05/19 09:09 SP [id number]) Cardio Equipment Elliptical Duration (Minutes) 3 Resistance 4 Other taxing and +SOB so stopped Therapeutic Exercises Prone Exercises child's pose side bend Reps/Minutes 30 x2 Standing Exercises D2 flexion Standing Exercise Name reverse chop Resistance TB #1 Reps/Minutes 5 x2 diaphramatic breathing Comments cued purse lips slow breath post elliptical sit to stands Equipment Used Lev 1 TB Comments arms across body, cued hip ER during stand decrease valgus cave on R Band walk Standing Exercise Name Lateral/ forward Equipment Used Tb #1 Reps/Minutes 20 ft x2 laps each Other Exercises cat/camel Reps/Minutes 10 PT-OP-R Modalities Start: 09/26/19 08:13 Freq: Status: Active Protocol: Document 10/12/19 09:00 AMB (Rec: 10/14/19 12:06 AMB [id number]) Hot Pack/Cold Pack Treatment low back Location Hotpack Patient Position Hooklying Treatment Duration (minutes) 15 PT-OP-T Assessment and Plan Start: 09/26/19 08:13 Freq: Status: Active Protocol: Document 11/05/19 08:24 SP (Rec: 11/05/19 09:09 SP [id number]) Physical Therapy Assessment Goals strength Short Term Goal (STG) Pt will be indep with HEP STG Duration achieved Type Mapper Goal (LTG) Pt will score 4+/5 on LE strength & 3/5 LPM, EFT & VCT in order to show improved stability without pain in order to allow him to do all his typical activities without inc pain. 10/31-improving still dec LTG Duration 11/27/19 ROM Short Term Goal (STG) Pt will have full ROM of lumbar spine without pain. 10/31-improving with stiffness STG Duration 10/27/19 Shelter Goal (LTG) Pt will be able to his full job in order to paricipate in all work duties without inc pain. 10/31 able to do full duties but has some inc pain LTG Duration 11/27/19 Oswestry Impairment 19/50 Short Term Goal (STG) Pt improve his score to 13/50 to show improvement in functional mobility 10/31 n/t STG Duration 10/27/19 Shelter Goal (LTG) Pt improve his score to 3/50 to show improvement in functional mobility LTG Duration 11/27/19 Assessment Summary Assessment Pt responded well to today's added to HEP: band walk, sit to stands, reverse chop, child pose sideband to incorporated in his day feels alot better , more stretched out. Ecouraged to continie supine core HEP at home. Physical Therapy Plan Frequency and Duration Frequency of Treatment 2x/Week Duration of Treatment 2 months Plan of Care Start Date 09/26/19 Plan of Care End Date 11/27/19 Therapeutic Interventions Modalities Cold Pack/Ice Massage,Electric Stimulation,Hot Packs Next Visit Focus/Plan Next Note Type Treatment Note Next Visit Plan Assess response to added see assessment. Cont to work on huip abd, ext, glute stability
--- NOTE | 2019-11-05 09:02 | PT.OTN ---
Current Diagnoses Low back pain (11/07/19) Abnormal posture (11/07/19) Weakness (11/07/19) Physical Therapy Treatment Note PT-OP-A Visit Information Start: 09/26/19 08:13 Freq: Status: Active Protocol: Document 11/09/19 08:01 SP (Rec: 11/05/19 09:09 SP [id number]) Out-Patient Physical Therapy Visit Information Visit Information Visit Type Treatment Note Visit Note 12/17 Visit Start Time 08:24 Visit Stop Time 09:02 Total Visit Minutes 38 Visit Number 12 Number of SEMICONDUCTOR DIES LOADER Visits 2 PT-OP-B Current Condition Start: 09/26/19 08:13 Freq: Status: Active Protocol: Document 09/26/19 15:13 [facility] (Rec: 09/26/19 16:00 [facility] [id number]) Current Condition History of Current Condition Onset Date 1 month ago Current Complaints LBP History of Current Condition Pt reports about 1 month ago he was crouched into a small space for about 10 min and he had excruciating pain after. Pt reports he feels likes he gets about 2-3% better per day and is about 40% better now compared to 1 month ago. Pt reports he took tylenol 4 times aday at first but now is only taking it once. Pt reprots it is difficult getting socks and pants on. Pt reprots history of B lung transplant last Jul 2018. He reports history of prostate cancer where he had a seed implant and is now cleared. 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 Pt has history of LBP in past from injury 20 years ago. Pt repots he now puts a pillow between his knees to help with sleeping. Pt walks dog 1-2 miles/day. Pt reports after the lung surgery he has had numbness in ant L leg and B ankles. Pt reports overall has recovered from lung surgery but is still a little weaker. Lung transplant was d/t pulmonary fibrosis. Pt reports always a little bit of pain in chest since surgery. Prior Treatments and Tests Xray of his back showed history of T11 compression fracture; acupuncture 2x- helpful Treatment Goals Patient/Caregiver Goals eliminate the pain, be more flexible, easier time at work, get dressed easier PT-OP-C Subjective Start: 09/26/19 08:13 Freq: Status: Active Protocol: Document 11/09/19 08:01 SP (Rec: 11/05/19 09:09 SP [id number]) OP-PT Subjective Patient Comments Patient Comments Pt LBP 3/10 pre PT. Was working in [employer] last week and had to do more bending with increased boat length and still recovering from shoveling the week prior. Since last week noticing doing better.. PT-OP-F Manual Assessment Start: 09/26/19 08:13 Freq: Status: Active Protocol: Document 09/26/19 15:13 [facility] (Rec: 09/26/19 16:00 [facility] [id number]) Manual Assessments Soft Tissue Assessment Soft Tissue Mobility Assessment tight QL B PT-OP-J Posture/Palpation/Skin Start: 09/26/19 08:13 Freq: Status: Active Protocol: Document 10/31/19 08:16 [facility] (Rec: 10/31/19 10:07 [facility] [id number]) Posture Evaluation Paulo Postural Classification System Vertebral Compression Test 3 Elbow Flexion Test 5 Lumbar Protective Mechanism Left AP 3 Lumbar Protective Mechanism Right AP 3 Lumbar Protective Mechanism Left PA 5 Lumbar Protective Mechanism Right PA 3 PT-OP-K Range of Motion Start: 09/26/19 08:13 Freq: Status: Active Protocol: Document 09/26/19 15:13 [facility] (Rec: 09/26/19 16:00 [facility] [id number]) Lumbar Spine Range of Motion Lumbar Spine Active Degrees Rotation Left 53 Rotation Right 47 ROM Limitations Pain Comments SB R:9 cm SB L: 11 cm flex: 5cm pain ext:4.5 cm PT-OP-L Special Tests Start: 09/26/19 08:13 Freq: Status: Active Protocol: Document 09/26/19 15:13 [facility] (Rec: 09/26/19 16:00 [facility] [id number]) Special Tests Lumbar Spine Special Tests Slump Test Results positive B Compression Test Results relief CADY Test Results Neg R; mild L hip pain Rocky Test Results modified rocky (hip flexor only tested)-mild tightness B Straight Leg Raise Test Results R 68-HS tightness; L 82 HS tightenss and ant L thigh pain PT-OP-M Strength Start: 09/26/19 08:13 Freq: Status: Active Protocol: Document 10/31/19 08:16 [facility] (Rec: 10/31/19 10:07 [facility] [id number]) Hip Strength Hip Manual Muscle Testing Left Flexion (L2) 4 Good Extension (S1) 3+ Fair+ Abduction 3+ Fair+ Adduction 4- Good- External Rotation 3+ Fair+ Internal Rotation 5 Normal Right Flexion (L2) 4- Good- Extension (S1) 3+ Fair+ Abduction 3+ Fair+ Adduction 4- Good- External Rotation 3+ Fair+ Internal Rotation 5 Normal Comments significant dec core stability with hip motions Knee Strength Knee Manual Muscle Testing Left Flexion (S2) 4 Good Extension (L3) 5 Normal Right Flexion (S2) 4+ Good+ Extension (L3) 5 Normal Ankle/Foot Strength Ankle and Foot Manual Muscle Testing Left Dorsiflexion (L4) 4 Good Plantarflexion (S1) 5 Normal Right Dorsiflexion (L4) 4 Good Plantarflexion (S1) 5 Normal Comments PF tested standing B PT-OP-Q Treatments Start: 09/26/19 08:13 Freq: Status: Active Protocol: Document 11/09/19 08:01 SP (Rec: 11/05/19 09:09 SP [id number]) Cardio Equipment Elliptical Duration (Minutes) 3 Resistance 4 Other taxing and +SOB so stopped Therapeutic Exercises Prone Exercises child's pose side bend Reps/Minutes 30 x2 Standing Exercises D2 flexion Standing Exercise Name reverse chop Resistance TB #1 Reps/Minutes 5 x2 diaphramatic breathing Comments cued purse lips slow breath post elliptical sit to stands Equipment Used Lev 1 TB Comments arms across body, cued hip ER during stand decrease valgus cave on R Band walk Standing Exercise Name Lateral/ forward Equipment Used Tb #1 Reps/Minutes 20 ft x2 laps each Other Exercises cat/camel Reps/Minutes 10 PT-OP-R Modalities Start: 09/26/19 08:13 Freq: Status: Active Protocol: Document 11/07/19 08:15 [facility] (Rec: 11/07/19 09:03 [facility] [id number]) Hot Pack/Cold Pack Treatment low back Location Hotpack Patient Position Hooklying Treatment Duration (minutes) 15 PT-OP-T Assessment and Plan Start: 09/26/19 08:13 Freq: Status: Active Protocol: Document 11/09/19 08:01 SP (Rec: 11/05/19 09:09 SP [id number]) Physical Therapy Assessment Goals strength Short Term Goal (STG) Pt will be indep with HEP STG Duration achieved Steam Fitter Helper Goal (LTG) Pt will score 4+/5 on LE strength & 3/5 LPM, EFT & VCT in order to show improved stability without pain in order to allow him to do all his typical activities without inc pain. 10/31-improving still dec LTG Duration 11/27/19 ROM Short Term Goal (STG) Pt will have full ROM of lumbar spine without pain. 10/31-improving with stiffness STG Duration 10/27/19 Fpc Goal (LTG) Pt will be able to his full job in order to paricipate in all work duties without inc pain. 10/31 able to do full duties but has some inc pain LTG Duration 11/27/19 Oswestry Impairment 19/50 Short Term Goal (STG) Pt improve his score to 13/50 to show improvement in functional mobility 10/31 n/t STG Duration 10/27/19 Fpc Goal (LTG) Pt improve his score to 3/50 to show improvement in functional mobility LTG Duration 11/27/19 Assessment Summary Assessment Pt responded well to today's added to HEP: band walk, sit to stands, reverse chop, child pose sideband to incorporated in his day feels alot better , more stretched out. Ecouraged to continie supine core HEP at home. Physical Therapy Plan Frequency and Duration Frequency of Treatment 2x/Week Duration of Treatment 2 months Plan of Care Start Date 09/26/19 Plan of Care End Date 11/27/19 Therapeutic Interventions Modalities Cold Pack/Ice Massage,Electric Stimulation,Hot Packs Next Visit Focus/Plan Next Note Type Treatment Note Next Visit Plan Assess response to added see assessment. Cont to work on huip abd, ext, glute stability
--- NOTE | 2019-11-07 09:03 | PT.OTN ---
Current Diagnoses Low back pain (11/07/19) Abnormal posture (11/07/19) Weakness (11/07/19) Physical Therapy Treatment Note PT-OP-A Visit Information Start: 09/26/19 08:13 Freq: Status: Active Protocol: Document 11/07/19 08:15 [facility] (Rec: 11/07/19 09:03 [facility] [id number]) Out-Patient Physical Therapy Visit Information Visit Information Visit Type Treatment Note Visit Note 01/17 Visit Start Time 08:16 Visit Stop Time 09:11 Total Visit Minutes 55 Visit Number 13 Number of BIOMEDICAL ENGINEERING TECHNICIAN Visits 0 PT-OP-B Current Condition Start: 09/26/19 08:13 Freq: Status: Active Protocol: Document 09/26/19 15:13 [facility] (Rec: 09/26/19 16:00 [facility] [id number]) Current Condition History of Current Condition Onset Date 1 month ago Current Complaints LBP History of Current Condition Pt reports about 1 month ago he was crouched into a small space for about 10 min and he had excruciating pain after. Pt reports he feels likes he gets about 2-3% better per day and is about 40% better now compared to 1 month ago. Pt reports he took tylenol 4 times aday at first but now is only taking it once. Pt reprots it is difficult getting socks and pants on. Pt reprots history of B lung transplant last Jul 2018. He reports history of prostate cancer where he had a seed implant and is now cleared. 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 Pt has history of LBP in past from injury 20 years ago. Pt repots he now puts a pillow between his knees to help with sleeping. Pt walks dog 1-2 miles/day. Pt reports after the lung surgery he has had numbness in ant L leg and B ankles. Pt reports overall has recovered from lung surgery but is still a little weaker. Lung transplant was d/t pulmonary fibrosis. Pt reports always a little bit of pain in chest since surgery. Prior Treatments and Tests Xray of his back showed history of T11 compression fracture; acupuncture 2x- helpful Treatment Goals Patient/Caregiver Goals eliminate the pain, be more flexible, easier time at work, get dressed easier PT-OP-C Subjective Start: 09/26/19 08:13 Freq: Status: Active Protocol: Document 11/07/19 08:15 [facility] (Rec: 11/07/19 09:03 [facility] [id number]) OP-PT Subjective Patient Comments Patient Comments Pt reports he has felt better the couple days. He is happy with his progress Patient Reported Progress Improving PT-OP-F Manual Assessment Start: 09/26/19 08:13 Freq: Status: Active Protocol: Document 09/26/19 15:13 [facility] (Rec: 09/26/19 16:00 [facility] [id number]) Manual Assessments Soft Tissue Assessment Soft Tissue Mobility Assessment tight QL B PT-OP-J Posture/Palpation/Skin Start: 09/26/19 08:13 Freq: Status: Active Protocol: Document 10/31/19 08:16 [facility] (Rec: 10/31/19 10:07 [facility] [id number]) Posture Evaluation Paulo Postural Classification System Vertebral Compression Test 3 Elbow Flexion Test 5 Lumbar Protective Mechanism Left AP 3 Lumbar Protective Mechanism Right AP 3 Lumbar Protective Mechanism Left PA 5 Lumbar Protective Mechanism Right PA 3 PT-OP-K Range of Motion Start: 09/26/19 08:13 Freq: Status: Active Protocol: Document 09/26/19 15:13 [facility] (Rec: 09/26/19 16:00 [facility] [id number]) Lumbar Spine Range of Motion Lumbar Spine Active Degrees Rotation Left 53 Rotation Right 47 ROM Limitations Pain Comments SB R:9 cm SB L: 11 cm flex: 5cm pain ext:4.5 cm PT-OP-L Special Tests Start: 09/26/19 08:13 Freq: Status: Active Protocol: Document 09/26/19 15:13 [facility] (Rec: 09/26/19 16:00 [facility] [id number]) Special Tests Lumbar Spine Special Tests Slump Test Results positive B Compression Test Results relief CADY Test Results Neg R; mild L hip pain Rocky Test Results modified rocky (hip flexor only tested)-mild tightness B Straight Leg Raise Test Results R 68-HS tightness; L 82 HS tightenss and ant L thigh pain PT-OP-M Strength Start: 09/26/19 08:13 Freq: Status: Active Protocol: Document 10/31/19 08:16 [facility] (Rec: 10/31/19 10:07 [facility] [id number]) Hip Strength Hip Manual Muscle Testing Left Flexion (L2) 4 Good Extension (S1) 3+ Fair+ Abduction 3+ Fair+ Adduction 4- Good- External Rotation 3+ Fair+ Internal Rotation 5 Normal Right Flexion (L2) 4- Good- Extension (S1) 3+ Fair+ Abduction 3+ Fair+ Adduction 4- Good- External Rotation 3+ Fair+ Internal Rotation 5 Normal Comments significant dec core stability with hip motions Knee Strength Knee Manual Muscle Testing Left Flexion (S2) 4 Good Extension (L3) 5 Normal Right Flexion (S2) 4+ Good+ Extension (L3) 5 Normal Ankle/Foot Strength Ankle and Foot Manual Muscle Testing Left Dorsiflexion (L4) 4 Good Plantarflexion (S1) 5 Normal Right Dorsiflexion (L4) 4 Good Plantarflexion (S1) 5 Normal Comments PF tested standing B PT-OP-Q Treatments Start: 09/26/19 08:13 Freq: Status: Active Protocol: Document 11/07/19 08:15 [facility] (Rec: 11/07/19 09:03 [facility] [id number]) Therapeutic Exercises Standing Exercises diagonals Standing Exercise Name D1 ext Side bilateral Reps/Minutes 15 D2 flexion Standing Exercise Name reverse chop Side bilateral Resistance TB #2 Reps/Minutes 10 Band walk Standing Exercise Name Lateral/ forward Equipment Used Tb #2 Reps/Minutes 20 ft x2 laps each Manual Therapy Treatment Soft Tissue Mobilization QL & ES Body Location ES Mobilization Type Rolling Intensity/Depth Moderate Comments seated and prone Joint Mobilizations innominiate Direction ER FM B sacrum Joint caudal & SPENSER FM PT-OP-R Modalities Start: 09/26/19 08:13 Freq: Status: Active Protocol: Document 11/07/19 08:15 [facility] (Rec: 11/07/19 09:03 [facility] [id number]) Hot Pack/Cold Pack Treatment low back Location Hotpack Patient Position Hooklying Treatment Duration (minutes) 15 PT-OP-T Assessment and Plan Start: 09/26/19 08:13 Freq: Status: Active Protocol: Document 11/07/19 08:15 [facility] (Rec: 11/07/19 09:03 [facility] [id number]) Physical Therapy Assessment Goals strength Short Term Goal (STG) Pt will be indep with HEP STG Duration achieved Chicken And Fish Cleaner Goal (LTG) Pt will score 4+/5 on LE strength & 3/5 LPM, EFT & VCT in order to show improved stability without pain in order to allow him to do all his typical activities without inc pain. 10/31-improving still dec LTG Duration 11/27/19 ROM Short Term Goal (STG) Pt will have full ROM of lumbar spine without pain. 10/31-improving with stiffness STG Duration 10/27/19 Chicken And Fish Cleaner Goal (LTG) Pt will be able to his full job in order to paricipate in all work duties without inc pain. 10/31 able to do full duties but has some inc pain LTG Duration 11/27/19 Oswestry Impairment 19/50 Short Term Goal (STG) Pt improve his score to 13/50 to show improvement in functional mobility 10/31 n/t STG Duration 10/27/19 Fpc Goal (LTG) Pt improve his score to 3/50 to show improvement in functional mobility LTG Duration 11/27/19 Assessment Summary Assessment Pt did well with exercises with min cueing. Explained importance of diagonal movement for core stability. He has tightnes in lumbosacral region which improves iwth mobilization. Physical Therapy Plan Frequency and Duration Frequency of Treatment 2x/Week Duration of Treatment 2 months Plan of Care Start Date 09/26/19 Plan of Care End Date 11/27/19 Next Visit Focus/Plan Next Note Type Treatment Note Next Visit Plan review HEP and prepare for dc after 2 more sessions
--- NOTE | 2019-11-12 12:55 | PT.OTN ---
Current Diagnoses Low back pain (11/12/19) Abnormal posture (11/12/19) Weakness (11/12/19) Physical Therapy Treatment Note PT-OP-A Visit Information Start: 09/26/19 08:13 Freq: Status: Active Protocol: Document 11/12/19 12:49 [facility] (Rec: 11/12/19 12:55 [facility] [id number]) Out-Patient Physical Therapy Visit Information Visit Information Visit Type Treatment Note Visit Start Time 08:15 Visit Stop Time 09:12 Total Visit Minutes 57 Visit Number 13 Number of INTERNAL COMBUSTION ENGINE SUBASSEMBLER Visits 0 PT-OP-B Current Condition Start: 09/26/19 08:13 Freq: Status: Active Protocol: Document 09/26/19 15:13 [facility] (Rec: 09/26/19 16:00 [facility] [id number]) Current Condition History of Current Condition Onset Date 1 month ago Current Complaints LBP History of Current Condition Pt reports about 1 month ago he was crouched into a small space for about 10 min and he had excruciating pain after. Pt reports he feels likes he gets about 2-3% better per day and is about 40% better now compared to 1 month ago. Pt reports he took tylenol 4 times aday at first but now is only taking it once. Pt reprots it is difficult getting socks and pants on. Pt reprots history of B lung transplant last Jul 2018. He reports history of prostate cancer where he had a seed implant and is now cleared. 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 Pt has history of LBP in past from injury 20 years ago. Pt repots he now puts a pillow between his knees to help with sleeping. Pt walks dog 1-2 miles/day. Pt reports after the lung surgery he has had numbness in ant L leg and B ankles. Pt reports overall has recovered from lung surgery but is still a little weaker. Lung transplant was d/t pulmonary fibrosis. Pt reports always a little bit of pain in chest since surgery. Prior Treatments and Tests Xray of his back showed history of T11 compression fracture; acupuncture 2x- helpful Treatment Goals Patient/Caregiver Goals eliminate the pain, be more flexible, easier time at work, get dressed easier PT-OP-C Subjective Start: 09/26/19 08:13 Freq: Status: Active Protocol: Document 11/12/19 12:49 [facility] (Rec: 11/12/19 12:55 [facility] [id number]) OP-PT Subjective Patient Comments Patient Comments Pt reprots doing pretty well. He brought all exercise handouts to review PT-OP-F Manual Assessment Start: 09/26/19 08:13 Freq: Status: Active Protocol: Document 09/26/19 15:13 [facility] (Rec: 09/26/19 16:00 [facility] [id number]) Manual Assessments Soft Tissue Assessment Soft Tissue Mobility Assessment tight QL B PT-OP-J Posture/Palpation/Skin Start: 09/26/19 08:13 Freq: Status: Active Protocol: Document 10/31/19 08:16 [facility] (Rec: 10/31/19 10:07 [facility] [id number]) Posture Evaluation Paulo Postural Classification System Vertebral Compression Test 3 Elbow Flexion Test 5 Lumbar Protective Mechanism Left AP 3 Lumbar Protective Mechanism Right AP 3 Lumbar Protective Mechanism Left PA 5 Lumbar Protective Mechanism Right PA 3 PT-OP-K Range of Motion Start: 09/26/19 08:13 Freq: Status: Active Protocol: Document 09/26/19 15:13 [facility] (Rec: 09/26/19 16:00 [facility] [id number]) Lumbar Spine Range of Motion Lumbar Spine Active Degrees Rotation Left 53 Rotation Right 47 ROM Limitations Pain Comments SB R:9 cm SB L: 11 cm flex: 5cm pain ext:4.5 cm PT-OP-L Special Tests Start: 09/26/19 08:13 Freq: Status: Active Protocol: Document 09/26/19 15:13 [facility] (Rec: 09/26/19 16:00 [facility] [id number]) Special Tests Lumbar Spine Special Tests Slump Test Results positive B Compression Test Results relief CADY Test Results Neg R; mild L hip pain Rocky Test Results modified rocky (hip flexor only tested)-mild tightness B Straight Leg Raise Test Results R 68-HS tightness; L 82 HS tightenss and ant L thigh pain PT-OP-M Strength Start: 09/26/19 08:13 Freq: Status: Active Protocol: Document 10/31/19 08:16 [facility] (Rec: 10/31/19 10:07 [facility] [id number]) Hip Strength Hip Manual Muscle Testing Left Flexion (L2) 4 Good Extension (S1) 3+ Fair+ Abduction 3+ Fair+ Adduction 4- Good- External Rotation 3+ Fair+ Internal Rotation 5 Normal Right Flexion (L2) 4- Good- Extension (S1) 3+ Fair+ Abduction 3+ Fair+ Adduction 4- Good- External Rotation 3+ Fair+ Internal Rotation 5 Normal Comments significant dec core stability with hip motions Knee Strength Knee Manual Muscle Testing Left Flexion (S2) 4 Good Extension (L3) 5 Normal Right Flexion (S2) 4+ Good+ Extension (L3) 5 Normal Ankle/Foot Strength Ankle and Foot Manual Muscle Testing Left Dorsiflexion (L4) 4 Good Plantarflexion (S1) 5 Normal Right Dorsiflexion (L4) 4 Good Plantarflexion (S1) 5 Normal Comments PF tested standing B PT-OP-Q Treatments Start: 09/26/19 08:13 Freq: Status: Active Protocol: Document 11/12/19 12:49 [facility] (Rec: 11/12/19 12:55 [facility] [id number]) Therapeutic Exercises Supine Exercises diaphramatic breathing Comments challenged mid to lower expansion 1 Supine Exercise Name ext over towel roll bridge Supine Exercise Name w/hip abd w/tband Reps/Minutes 8 Comments stopped d/t too easy hip flex Supine Exercise Name supine core stability with double leg drop Comments tried alt also d/t difficulty with double Prone Exercises child's pose side bend Prone Exercise Name fwd & side Side bilateral Reps/Minutes 30 quadruped bird dog Prone Exercise Name BUE /LE Side bilateral Resistance AROM Reps/Minutes 10 Comments cued neutral pelvis, and level shld (lift) Standing Exercises D2 flexion Standing Exercise Name reverse chop Side bilateral Resistance TB #1 Reps/Minutes 10 Band walk Standing Exercise Name fwd/back Equipment Used lvl 3 Reps/Minutes 20ft Pec corner stretch Side bilateral Reps/Minutes 30sec HABD Side bilateral Reps/Minutes 15 shoulder ext Side bilateral Equipment Used L3 Reps/Minutes 15 hip abd/ext TB Standing Exercise Name side step with squats Side bilateral Reps/Minutes 20ft Other Exercises cat/camel Reps/Minutes 10 Manual Therapy Treatment Soft Tissue Mobilization QL & ES Body Location ES & QL Mobilization Type Rolling Intensity/Depth Moderate Comments seated and prone PT-OP-R Modalities Start: 09/26/19 08:13 Freq: Status: Active Protocol: Document 11/12/19 12:49 [facility] (Rec: 11/12/19 12:55 [facility] [id number]) Hot Pack/Cold Pack Treatment low back Location Hotpack Patient Position Hooklying Treatment Duration (minutes) 15 PT-OP-T Assessment and Plan Start: 09/26/19 08:13 Freq: Status: Active Protocol: Document 11/09/19 08:01 [facility] (Rec: 11/05/19 09:09 [facility] [id number]) Physical Therapy Assessment Goals strength Short Term Goal (STG) Pt will be indep with HEP STG Duration achieved Jail Goal (LTG) Pt will score 4+/5 on LE strength & 3/5 LPM, EFT & VCT in order to show improved stability without pain in order to allow him to do all his typical activities without inc pain. 10/31-improving still dec LTG Duration 11/27/19 ROM Short Term Goal (STG) Pt will have full ROM of lumbar spine without pain. 10/31-improving with stiffness STG Duration 10/27/19 Jail Goal (LTG) Pt will be able to his full job in order to paricipate in all work duties without inc pain. 10/31 able to do full duties but has some inc pain LTG Duration 11/27/19 Oswestry Impairment 19/50 Short Term Goal (STG) Pt improve his score to 13/50 to show improvement in functional mobility 10/31 n/t STG Duration 10/27/19 Hand Bender Goal (LTG) Pt improve his score to 3/50 to show improvement in functional mobility LTG Duration 11/27/19 Assessment Summary Assessment Pt responded well to today's added to HEP: band walk, sit to stands, reverse chop, child pose sideband to incorporated in his day feels alot better , more stretched out. Ecouraged to continie supine core HEP at home. Physical Therapy Plan Frequency and Duration Frequency of Treatment 2x/Week Duration of Treatment 2 months Plan of Care Start Date 09/26/19 Plan of Care End Date 11/27/19 Therapeutic Interventions Modalities Cold Pack/Ice Massage,Electric Stimulation,Hot Packs Next Visit Focus/Plan Next Note Type Treatment Note Next Visit Plan Assess response to added see assessment. Cont to work on huip abd, ext, glute stability
--- NOTE | 2019-11-26 08:58 | PT.OTN ---
Current Diagnoses Low back pain (11/26/19) Abnormal posture (11/26/19) Weakness (11/26/19) Physical Therapy Treatment Note PT-OP-A Visit Information Start: 09/26/19 08:13 Freq: Status: Active Protocol: Document 11/26/19 08:19 [facility] (Rec: 11/26/19 08:58 [facility] [id number]) Out-Patient Physical Therapy Visit Information Visit Information Visit Type Discharge Summary Visit Start Time 08:15 Visit Stop Time 08:53 Total Visit Minutes 38 Visit Number Number of CIRCLE EDGER Visits 0 PT-OP-B Current Condition Start: 09/26/19 08:13 Freq: Status: Active Protocol: Document 09/26/19 15:13 [facility] (Rec: 09/26/19 16:00 [facility] [id number]) Current Condition History of Current Condition Onset Date 1 month ago Current Complaints LBP History of Current Condition Pt reports about 1 month ago he was crouched into a small space for about 10 min and he had excruciating pain after. Pt reports he feels likes he gets about 2-3% better per day and is about 40% better now compared to 1 month ago. Pt reports he took tylenol 4 times aday at first but now is only taking it once. Pt reprots it is difficult getting socks and pants on. Pt reprots history of B lung transplant last Jul 2018. He reports history of prostate cancer where he had a seed implant and is now cleared. 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 Pt has history of LBP in past from injury 20 years ago. Pt repots he now puts a pillow between his knees to help with sleeping. Pt walks dog 1-2 miles/day. Pt reports after the lung surgery he has had numbness in ant L leg and B ankles. Pt reports overall has recovered from lung surgery but is still a little weaker. Lung transplant was d/t pulmonary fibrosis. Pt reports always a little bit of pain in chest since surgery. Prior Treatments and Tests Xray of his back showed history of T11 compression fracture; acupuncture 2x- helpful Treatment Goals Patient/Caregiver Goals eliminate the pain, be more flexible, easier time at work, get dressed easier PT-OP-C Subjective Start: 09/26/19 08:13 Freq: Status: Active Protocol: Document 11/26/19 08:19 [facility] (Rec: 11/26/19 08:58 [facility] [id number]) OP-PT Subjective Patient Comments Patient Comments Pt reprots back is feeling good PT-OP-F Manual Assessment Start: 09/26/19 08:13 Freq: Status: Active Protocol: Document 09/26/19 15:13 [facility] (Rec: 09/26/19 16:00 [facility] [id number]) Manual Assessments Soft Tissue Assessment Soft Tissue Mobility Assessment tight QL B PT-OP-J Posture/Palpation/Skin Start: 09/26/19 08:13 Freq: Status: Active Protocol: Document 11/26/19 08:19 [facility] (Rec: 11/26/19 08:58 [facility] [id number]) Posture Evaluation Paulo Postural Classification System Vertebral Compression Test 5 Elbow Flexion Test 5 Lumbar Protective Mechanism Left AP 3 Lumbar Protective Mechanism Right AP 4 Lumbar Protective Mechanism Left PA 5 Lumbar Protective Mechanism Right PA 4 PT-OP-K Range of Motion Start: 09/26/19 08:13 Freq: Status: Active Protocol: Document 09/26/19 15:13 [facility] (Rec: 09/26/19 16:00 [facility] [id number]) Lumbar Spine Range of Motion Lumbar Spine Active Degrees Rotation Left 53 Rotation Right 47 ROM Limitations Pain Comments SB R:9 cm SB L: 11 cm flex: 5cm pain ext:4.5 cm PT-OP-L Special Tests Start: 09/26/19 08:13 Freq: Status: Active Protocol: Document 09/26/19 15:13 [facility] (Rec: 09/26/19 16:00 [facility] [id number]) Special Tests Lumbar Spine Special Tests Slump Test Results positive B Compression Test Results relief CADY Test Results Neg R; mild L hip pain Rocky Test Results modified rocky (hip flexor only tested)-mild tightness B Straight Leg Raise Test Results R 68-HS tightness; L 82 HS tightenss and ant L thigh pain PT-OP-M Strength Start: 09/26/19 08:13 Freq: Status: Active Protocol: Document 11/26/19 08:19 [facility] (Rec: 11/26/19 08:58 [facility] [id number]) Hip Strength Hip Manual Muscle Testing Left Flexion (L2) 4+ Good+ Extension (S1) 3+ Fair+ Abduction 4 Good External Rotation 5 Normal Internal Rotation 4+ Good+ Right Flexion (L2) 5 Normal Extension (S1) 3+ Fair+ Abduction 4 Good External Rotation 4- Good- Internal Rotation 5 Normal Comments significant dec core stability with hip motions Knee Strength Knee Manual Muscle Testing Left Flexion (S2) 4+ Good+ Extension (L3) 5 Normal Right Flexion (S2) 4+ Good+ Extension (L3) 5 Normal Ankle/Foot Strength Ankle and Foot Manual Muscle Testing Left Dorsiflexion (L4) 4+ Good+ Plantarflexion (S1) 5 Normal Right Dorsiflexion (L4) 5 Normal Plantarflexion (S1) 5 Normal Comments PF tested standing B PT-OP-Q Treatments Start: 09/26/19 08:13 Freq: Status: Active Protocol: Document 11/26/19 08:19 [facility] (Rec: 11/26/19 08:58 [facility] [id number]) Therapeutic Exercises Supine Exercises piriformis stretch Side bilateral Reps/Minutes 30 sec diaphramatic breathing Supine Exercise Name tried wavy gravy Comments challenged mid to lower expansion 1 Supine Exercise Name DTKC Reps/Minutes 1 min rotation Supine Exercise Name LTR Side bilateral Reps/Minutes 10 Prone Exercises ext Side bilateral Reps/Minutes 10 quadruped bird dog Prone Exercise Name BUE /LE Side bilateral Resistance AROM Reps/Minutes 10 Comments cued neutral pelvis, and level shld (lift) Sidelying Exercises abd Sidelying Exercise Name hip Side bilateral Reps/Minutes 10 Comments cued trunk Standing Exercises wall postre Standing Exercise Name /90/90 ER Side bilateral Reps/Minutes 10 Pec corner stretch Side bilateral Reps/Minutes 30sec Self-Care/Home Management Treatment Education Patient Education Home Exercise Program Other Education movement before getting up in the AM, importance of posture, cont HEP PT-OP-R Modalities Start: 09/26/19 08:13 Freq: Status: Active Protocol: Document 11/12/19 12:49 [facility] (Rec: 11/12/19 12:55 [facility] [id number]) Hot Pack/Cold Pack Treatment low back Location Hotpack Patient Position Hooklying Treatment Duration (minutes) 15 PT-OP-T Assessment and Plan Start: 09/26/19 08:13 Freq: Status: Active Protocol: Document 11/26/19 08:19 [facility] (Rec: 11/26/19 08:58 [facility] [id number]) Physical Therapy Assessment Goals strength Short Term Goal (STG) Pt will be indep with HEP STG Duration achieved Penitentiary Goal (LTG) Pt will score 4+/5 on LE strength & 3/5 LPM, EFT & VCT in order to show improved stability without pain in order to allow him to do all his typical activities without inc pain. 10/31-improving still dec LTG Duration improved with cont with HEP ROM Short Term Goal (STG) Pt will have full ROM of lumbar spine without pain. 10/31-improving with stiffness STG Duration achieved Battery Filler Goal (LTG) Pt will be able to his full job in order to paricipate in all work duties without inc pain. 10/31 able to do full duties but has some inc pain LTG Duration achieved Oswestry Impairment 19/50 Short Term Goal (STG) Pt improve his score to 13/50 to show improvement in functional mobility 10/31 n/t STG Duration achieved Penitentiary Goal (LTG) Pt improve his score to 3/50 to show improvement in functional mobility LTG Duration progressed to 5/50 Assessment Summary Assessment Pt has made excellent progress iwth LE strength, core stability, lumbar spine mobility, fucntioanl ability and w. pain level. He will cont his HEP at home in order to improve to dec stiffness and improve his overall strength. Pt is indepw ith HEP at this time and d/c Physical Therapy Plan Discharge Physical Therapy Discharge Reasons Goals Met
== END 2019-11-26 13:13 ==
LOC: PHYS 08:15
PROVIDERS: PCP Nurse Practitioner; Visit Provider Nurse Practitioner
DX: M54.5 Low back pain (principal); R53.1 Weakness; R29.3 Abnormal posture
CPT/HCPCS: 97010; 97110; 97112; 97140; 97162; 97535

== ENCOUNTER → 2020-04-05 15:15 | Outpatient (CLI) | payer MEDICARE, SELFPAY ==
[2020-04-06 10:14] LABS: COVID19 Sendout Not Detected (Not Detect)
== END ==
PROVIDERS: PCP Nurse Practitioner; Visit Provider Physician Assistant
DX: Z11.59 Encounter for screening for other viral diseases (principal)
CPT/HCPCS: 87635

== ENCOUNTER 2020-04-08 07:02 | Day surgery (SDC) | payer MEDICARE, SELFPAY ==
[2020-04-08 07:30] VITALS: BP 133/64; PULSE 63; RESP 20; TEMP 36.6; O2SAT 95; BMI 25.2
[2020-04-08] MEDS: PROPARACAINE 0.5% OPHTH SOL 2 DROPS EYE-OP (07:30)
[2020-04-08] MEDS: CATARACT EYE COMPOUND (10 DROPS/SYRINGE) 3 DROPS EYE-OP (07:45)
--- NOTE | 2020-04-08 08:58 | P.OP_ITS ---
Operative Date/Time/Diagnoses Pre-op diagnosis: Nuclear cataract right eye Procedure & Clinicians Procedure: Cataract Surgery Same procedure as scheduled: Yes Surgeon: Gavin Rush Anesthesia Type: MAC +/- and Sedation Operative Notes Procedure in detail: Patient brought to the operating suite. Tetracaine drops placed in the right eye. Marking instrument was used to jaelyn the vertical and horizontal meridains. Patient was prepped and draped in sterile manner. Wire lid speculum was placed in the eye. Marking instrument was used to jaelyn the 175 degree meridian. Betadine drops were placed on the eye. This was irrigated. Lidocaine jelly was placed on the eye. A paracentesis port was created with a side-port blade. 0.1 mL 1% preservative free lidocaine was injected into the anterior chamber. The anterior chamber was deepened with viscoelastic. 2.6 mm keratome was used to create a temporal clear corneal incision. Cystotome and Utrata forceps were used to create continuous tear capsulorrhexis. Balanced salt solution was used to hydro dissect the nucleus. The phacoemulsification handpiece was inserted and the nucleus was removed using the stop and chop technique. The irrigation aspiration handpiece was inserted and the remaining cortex was removed. Anterior chamber was deepened with viscoelastic. An Ann [id number] intraocular lens with a power of 14.0 was injected into the capsular bag. Irrigation aspiration handpiece was inserted and the remaining viscoelastic was removed. The lens was rotated to the 175 degree meridian. Incision was hydrated with balanced salt solution and found to be leak free with pressure with Weck- Mariana sponges. 0.1 mL Vigamox injected anterior chamber. 0.3 mL Kenalog 10 mg was injected subconjunctivally. Lid speculum was removed. The patient left the operating room in excellent condition. Complications: none Post-operative Condition: stable Disposition: same day surgery
--- NOTE | 2020-04-08 08:58 | PM.PREOP ---
Pre-operative Note Interval Note History & Physical reviewed/Exam performed by Physician: Yes Changes to H&P: No
[2020-04-08] MEDS: CHONDROIDTIN/SOD HYALURONATE 1.05 ML SYRINGE INTRAOCULA (09:10)
[2020-04-08] MEDS: LIDOCAINE JELLY 2% 5 ML 1 APPLIC TOP (09:10)
[2020-04-08] MEDS: PHENYLEPHRINE/LIDOCAINE VIAL (OR) 0.2 ML EYE-OP (09:11)
[2020-04-08] MEDS: MOXIFLOXACIN INJ 5 MG/ML VIAL EYE-OP (09:11)
[2020-04-08] MEDS: TRIAMCINOLONE 50 MG/5 ML VIAL INJ (09:11)
[2020-04-08] MEDS: TETRACAINE 0.5% OPHTH DROPS 4 ML 2 DROPS EYE-OP (09:12)
[2020-04-08] MEDS: BALANCED SALT IRRIG SOLN NO.2 500 ML, EPINEPHrine 1 MG IRR (09:12)
[2020-04-08 09:30] VITALS: BP 110/57; PULSE 59; RESP 18; TEMP 36.4; O2SAT 97
[2020-04-08 09:45] VITALS: BP 121/58; PULSE 51; RESP 16; O2SAT 98
== END 2020-04-08 09:59 | disposition home or self-care (01) ==
PROVIDERS: PCP Nurse Practitioner; Referring Provider Ophthalmology; Visit Provider Ophthalmology
PROC: (CPT 66984; principal; 2020-04-08 08:45)
DX: H25.11 Age-related nuclear cataract, right eye (principal); E11.9 Type 2 diabetes mellitus without complications; Z79.4 Long term (current) use of insulin; Z86.73 Personal history of transient ischemic attack (TIA), and cerebral infarction without residual deficits
CPT/HCPCS: 66984; J0171; J2250; J3010; J3301; V2787

== ENCOUNTER → 2020-04-19 14:07 | Outpatient (CLI) | payer MEDICARE, SELFPAY ==
[2020-04-20 17:50] LABS: COVID19 Sendout Not Detected (Not Detect)
== END ==
PROVIDERS: PCP Nurse Practitioner; Visit Provider Physician Assistant
DX: Z01.812 Encounter for preprocedural laboratory examination (principal)
CPT/HCPCS: 87635

== ENCOUNTER 2020-04-22 06:10 | Day surgery (SDC) | payer MEDICARE, SELFPAY ==
[2020-04-22] MEDS: PROPARACAINE 0.5% OPHTH SOL 2 DROPS EYE-OP (07:07)
[2020-04-22] MEDS: CATARACT EYE COMPOUND (10 DROPS/SYRINGE) 3 DROPS EYE-OP (07:11)
[2020-04-22 07:12] VITALS: BMI 25.4
[2020-04-22 07:30] VITALS: BP 134/65; PULSE 54; RESP 12; TEMP 36.4; O2SAT 97
--- NOTE | 2020-04-22 07:40 | P.OP_ITS ---
Operative Date/Time/Diagnoses Pre-op diagnosis: Nuclear Cataract Left eye Post-op diagnosis: same Procedure & Clinicians Same procedure as scheduled: Yes Surgeon: Gavin Rush Anesthesia Type: MAC +/- and Sedation Operative Notes Procedure in detail: Patient brought to the operating suite. Tetracaine drops placed in the left eye. The vertical and horizontal meridians were marked with marking instrument. Patient was prepped and draped in sterile manner. Wire lid speculum was placed in the eye. Marking instrument was used to jaelyn 175 degree meridian. Betadine drops were placed on the eye. This was irrigated. Lidocaine jelly was placed on the eye. A paracentesis port was created with a side-port blade. 0.1 mL 1% preservative free lidocaine was injected into the anterior chamber. The anterior chamber was deepened with viscoelastic. 2.6 mm keratome was used to create a temporal clear corneal incision. Cystotome and Utrata forceps were used to create continuous tear capsulorrhexis. Balanced salt solution was used to hydro dissect the nucleus. The phacoemulsification handpiece was inserted and the nucleus was removed using the stop and chop nilesh hnique. The irrigation aspiration handpiece was inserted and the remaining cortex was removed. Anterior chamber was deepened with viscoelastic. An Ann [id number] intraocular lens with a power of 15.5 was injected into the capsular bag. Irrigation aspiration handpiece was inserted and the remaining viscoelastic was removed. The lens was rotated to the 175 degree meridian. Incision was hydrated with balanced salt solution and found to be leak free with pressure with Weck-Mariana sponges. 0.1 mL Vigamox injected anterior chamber. 0.3 mL Kenalog 10 mg was injected subconjunctivally. Lid speculum was removed. The patient left the operating room in excellent condition. Complications: none Post-operative Condition: stable Disposition: same day surgery
--- NOTE | 2020-04-22 07:40 | PM.PREOP ---
Pre-operative Note Interval Note History & Physical reviewed/Exam performed by Physician: Yes Changes to H&P: No
[2020-04-22] MEDS: LIDOCAINE JELLY 2% 5 ML 1 APPLIC TOP (08:06)
[2020-04-22] MEDS: MOXIFLOXACIN INJ 5 MG/ML VIAL EYE-OP (08:06)
[2020-04-22] MEDS: CHONDROIDTIN/SOD HYALURONATE 1.05 ML SYRINGE INTRAOCULA (08:06)
[2020-04-22] MEDS: TRIAMCINOLONE 50 MG/5 ML VIAL INJ (08:07)
[2020-04-22] MEDS: PHENYLEPHRINE/LIDOCAINE VIAL (OR) 0.2 ML EYE-OP (08:07)
[2020-04-22] MEDS: TETRACAINE 0.5% OPHTH DROPS 4 ML 2 DROPS EYE-OP (08:07)
[2020-04-22] MEDS: BALANCED SALT IRRIG SOLN NO.2 500 ML, EPINEPHrine 1 MG IRR (08:08)
[2020-04-22 08:20] VITALS: BP 113/51; PULSE 57; RESP 16; TEMP 36.1; O2SAT 99
--- NOTE | 2020-04-22 08:43 | SUR.PHASEII ---
0831-Pt dcd via [facility] in stable condition to at [facility], [place] in private car. Pt given all dc instructions along with verbal and written and both verbalize understanding
== END 2020-04-22 08:31 | disposition home or self-care (01) ==
PROVIDERS: PCP Nurse Practitioner; Referring Provider Ophthalmology; Visit Provider Ophthalmology
PROC: (CPT 66984; principal; 2020-04-22 07:45)
DX: H25.12 Age-related nuclear cataract, left eye (principal); E11.9 Type 2 diabetes mellitus without complications; Z86.73 Personal history of transient ischemic attack (TIA), and cerebral infarction without residual deficits; I48.91 Unspecified atrial fibrillation; Z94.2 Lung transplant status; Z79.4 Long term (current) use of insulin
CPT/HCPCS: 66984; J0171; J2250; J3301; V2787

== ENCOUNTER → 2024-02-03 14:47 | Outpatient (CLI) | payer MEDICARE, SELFPAY ==
[2024-02-03 15:31] LABS: Influenza A - CEPHEID Flu A NEGATIVE (NEGATIVE); Influenza B - CEPHEID Flu B NEGATIVE (NEGATIVE); Respiratory Syncytial Virus Negative (Negative)
[2024-02-03 15:37] LABS: COVID-19 CEPHEID 4-PLEX PCR Negative (Negative)
== END ==
PROVIDERS: PCP Nurse Practitioner; Visit Provider Physician Assistant
DX: Z20.828 Contact with and (suspected) exposure to other viral communicable diseases (principal)
CPT/HCPCS: 0241U

== ENCOUNTER → 2024-02-03 15:29 | Outpatient (CLI) | payer MEDICARE, SELFPAY ==
--- NOTE | 2024-02-03 15:34 | DI.RAD.S_ITS ---
PROCEDURE: XR CHEST 2V INDICATIONS: Cough x 4 weeks, immunocompromised TECHNIQUE: 2 views of the chest were acquired. COMPARISON: CT angiogram of chest dated 01/29/2019. FINDINGS: Surgical changes and devices: Median sternotomy hardware is seen. Lungs and pleura: Lungs are clear. No pleural effusions or pneumothorax. Mediastinum: Tortuous thoracic aorta is noted. Heart size is enlarged. Bones and chest wall: No suspicious bony abnormalities. Soft tissues appear unremarkable. IMPRESSION: No acute cardiopulmonary pathology. Dictated by: Umesh Ralph M.D. on 02/03/2024 at 16:10 Approved by: Umesh Ralph M.D. on 02/03/2024 at 16:11
== END ==
PROVIDERS: PCP Nurse Practitioner; Referring Provider Physician Assistant; Visit Provider Physician Assistant
DX: R05.9 Cough, unspecified (principal); Z20.828 Contact with and (suspected) exposure to other viral communicable diseases
CPT/HCPCS: 0241U; 71046